=== PATIENT | male | born 1940 | race Caucasian/White ===

== ENCOUNTER 2017-01-09 05:41 | Inpatient (IN) | payer MEDICARE ==
[~2017-01-09] VITALS: Ht 185.4 cm; Wt 90.3 kg
[2017-01-09] VITALS (7 sets, daily range): BP systolic 145–186; BP diastolic 43–78
--- NOTE | ~2017-01-09 | CON ---
[place], [place] REPORT OF CONSULTATION NAME: [id number] UNIT #: [id number] ROOM: 519 DOCTOR: KETAN RODRIGUEZ MD BIRTHDATE: [birth year] DOS: 01/12/2017 PULMONARY CONSULTATION EVALUATION AND MANAGEMENT CONSULTATION REQUESTED BY: Hospitalist Services. REASON FOR CONSULTATION: To assess the patient for acute pneumonia and other ongoing acute respiratory complaints. HISTORY OF PRESENT ILLNESS: This is a 76-year-old white male who has been unknown to me from the past. The patient has been admitted under hospitalist services on 01/09/2017 and reported with symptoms of having increased shortness of breath. The patient's symptoms have been noted for several weeks until he has been assessed in the hospital. The patient's symptoms worsened significantly in 72 hours prior to admission to the hospital. He was also noted with symptoms of coughing, with intermittent sputum expectoration as well with current symptoms. The patient was also noted with symptoms of wheezing associated with current symptoms. He denies any symptoms of chest pain or chest trauma. The patient does not have any symptoms of hemoptysis. REVIEW OF SYSTEMS: CONSTITUTIONAL: He was noted with symptoms of fatigue and tiredness. Denies symptoms of fever or chills at this time, but it was reported on admission, currently seemed to be resolved. EYES: Denies any burning, diplopia for this patient or dryness of the eye or any discharge. EAR, NOSE, THROAT: No sore throat, hoarseness, otalgia, postnasal drainage or epistaxis. CARDIOVASCULAR: Denies anginal pain, edema or pain of the lower extremities. GASTROINTESTINAL: Denies dysphagia, nausea, vomiting, diarrhea, abdominal pain, hematemesis, melena at the present time. SKIN: Denies any lesions or rashes. GENITOURINARY: History of endstage renal failure for 5 years, receiving hemodialysis 3 times a week. MUSCULOSKELETAL: Denies acute joint pain, redness, or tenderness. SKIN: No lesions or rashes. CENTRAL NERVOUS SYSTEM: Denies dizziness, headache, diplopia or syncopal episodes. Remaining systems were reviewed with the patient, they were noted all negative. PAST MEDICAL HISTORY: The patient was reported as history of: 1. Congestive heart failure for this patient. Systolic, diastolic dysfunction, unknown at the present time. 2. Endstage renal failure, on hemodialysis. 3. History of hyperlipidemia. 4. Essential hypertension. 5. Type 2 diabetes mellitus. PAST SURGICAL HISTORY: Creation of the AV fistula for the patient of the right [place], [place] REPORT OF CONSULTATION NAME: ERICA ROMERO UNIT #: [id number] ROOM: [facility] DOCTOR: KETAN RODRIGUEZ MD BIRTHDATE: [birth year] upper extremity. SOCIAL HISTORY: The patient stated that he is , has 1 child. He has worked in the [employer] for 12 years or greater. Denies any history of alcohol use, tobacco use or any illicit drugs. FAMILY HISTORY: Both parents have been . Father at the age 7070 years old, complication of renal failure and also noted history of colon cancer. Mother at the age of 8080 years old, complication related to the lymphoma. DRUG ALLERGIES: Noted for no known drug allergies. HOME MEDICATIONS: Listed as use of Norvasc, Lumigan eye drops, Alphagan eye drops, folic acid with vitamin B and C combination, Lasix, NPH insulin, losartan and pravastatin. PHYSICAL EXAMINATION: GENERAL: A 76-year-old male who has been currently noted to be awake and alert without any distress. Height of 6 feet 1 inch, weight of 204 pounds, BMI 26. VITAL SIGNS: On admission recorded vital signs, the patient was noted as normal temperature, patient's highest temperature noted on 01/09/2017 as 99.9 degrees Fahrenheit, respiratory rate 12-14, and highest was recorded as 26 previously. The heart rate ranging between 79-86, blood pressure 137/59-143/62. The pulse oxygen saturation noted for this patient on admission as 90% on room air. Later on up to 4 liters saturation 95%, currently on 1 liter nasal cannula was 99% saturation recorded. HEENT: Examination shows head was atraumatic. Eyes nonicterus. NECK: Supple. CARDIOVASCULAR: S1, S2 is audible. LUNGS: The patient was noted with scattered crackles of the lungs with expiratory wheezing was noted, mild to moderate in the lungs bilaterally. ABDOMEN: Soft, nontender, bowel sounds present. EXTREMITIES: Show no edema, clubbing, cyanosis. CENTRAL NERVOUS SYSTEM: Cranial nerves 2-12 intact. No focal deficits. MUSCULOSKELETAL: No deformities. SKIN: No lesions or rashes. LABORATORY DATA: CMP of the patient on 01/09/2017, BUN is 70, creatinine 10.0, glucose 187, sodium 132, potassium was normal. PT/INR was noted as 1.1. CBC of the patient of 01/09/2017, WBC count 12.5, hemoglobin 9.2, hematocrit 26.9, platelet count 227,000. The CPK-MB for the patient that was done on 01/09/2017, troponin 0.229, MB 4.5, minimally elevated, normal CPK. Second CK-MB and troponin on the same day of the patient noted essentially the same finding as previously. PT/PTT for the patient on 01/10/2017 shows INR of 1.2. The PTT for this patient was noted at that time 34.7. CBC of patient this morning: WBC count 9.5, hemoglobin 9.1, hematocrit 27.1, platelet count of 240,000. BMP: BUN 50, creatinine 6.75, glucose of 74, chloride of 97. Review of the radiology data for this patient that has been done since admission and currently. The chest x-ray for the patient that was done on 01/09/2017, one view noted with large area of consolidation, infiltration involving right middle and right lower [place], [place] REPORT OF CONSULTATION NAME: ERICA ROMERO UNIT #: [id number] ROOM: [facility] DOCTOR: YAZMIN CHANEY MD,[facility] BIRTHDATE: [birth year] lobe. The chest x-ray which was done this morning one view again taken showed reduction and improvement in infiltration, although resolution noted incomplete. Small acute infiltration was noted in the left lower lobe. IMPRESSION: 1. The patient who has been currently noted with finding consistent with what appeared to be acute asthmatic bronchitis for this patient, which developed secondary to acute bacterial pneumonia, gram-positive organisms. Possibility of gram-negative infection cannot be completely excluded. 2. The patient with ongoing exacerbation of bronchial asthma, persistent symptoms, the patient coughing with some sputum expectoration intermittently continued. 3. Slow resolution of acute infiltration. 4. Additional area of infiltration of the patient in the left lower lobe might be suggestive of area of atelectasis secondary to mucus impaction. 5. The patient with history of end-stage renal failure, on hemodialysis on a regular basis. PLAN OF TREATMENT: The patient has been ordered the Solu-Medrol to be started 40 mg q.8 hours with gradual reduction of dose based on improvement in symptoms of wheezing. The patient is already getting bronchodilators, the DuoNeb, which will be continued for this patient as well. Monitor blood glucose of the patient if necessary because of corticosteroid use. Order the sputum for Gram stain and culture and the flutter valve. Chest x-ray, PA and lateral view of the patient will be ordered and to be done on Monday morning for this patient to reassess the progression of the current symptom response to the current treatment. If necessary, consider bronchoscopy as well. Usual care. All other supportive plan of management and therapies. Other treatment changes will be made accordingly. Thanks for allowing me to participate in the care of this patient. KETAN ARCE MD CM:CONSTR:REPORT OF CONSULTATION 1612 01/13/17 0610 interface
--- NOTE | ~2017-01-09 | CON ---
[place], [place] REPORT OF CONSULTATION [facility] [id number] UNIT #: [id number] ROOM: [facility] DOCTOR: ANA LUISA BURGOS MD BIRTHDATE: [birth year] DOS: 01/09/2017 CARDIOLOGY CONSULTATION The patient was seen. REASON FOR CONSULTATION: Elevated troponin levels. HISTORY OF PRESENT ILLNESS: The patient is a 76-year-old man who has a history of type 2 diabetes mellitus and hypertension. He denies any previous history of heart disease. Lately, he has been feeling more breathless and has had an increasing cough. He states that in the last 3 days this became much more intense and then he developed some fevers, chills, dizziness, and even diarrhea. He was brought to the Emergency Room where his chest x-ray did show multifocal consolidation and airspace disease in the right lung. He was admitted with a diagnosis of probable pneumonia. His blood test did show a mild elevation in troponin at 0.157 and on repeat 0.229. Cardiology consultation was therefore requested. The patient denies any chest pain. He denies lightheadedness or syncope. He denies orthopnea or PND. He does not think he has had chills, but has been slightly feverish. PAST MEDICAL HISTORY: Includes the followin. End-stage renal disease, on dialysis. The patient states that he has been on dialysis for about 5 years and he believes that his renal failure was caused by uncontrolled hypertension. 2. Chronic diastolic congestive heart failure. 3. Hyperlipidemia. 4. Long history of uncontrolled hypertension. 5. Type 2 diabetes mellitus. FAMILY HISTORY: His mother in her 80s from a lymphoma. His father of kidney failure in his 70s. MEDICATIONS: Prior to admission, amlodipine 5 mg daily, Lumigan eyedrops as prescribed, Alphagan eyedrops daily, calcium acetate 667 mg t.i.d., folic acid with B complex and C daily, furosemide 40 mg p.o. daily, Novolin 70/30 insulin 25 units subcutaneously b.i.d., losartan 50 mg daily and pravastatin 40 mg daily. ALLERGIES: He has no known drug allergies. REVIEW OF SYSTEMS: The patient denies diplopia or change in vision. He denies focal weakness. He denies syncope or lightheadedness. He denies nausea or vomiting now, although he did have some diarrhea prior to admission. He denies fevers or chills. He has had a minimally productive cough. He has been noticing worsening dyspnea and orthopnea. He denies hemoptysis or hematemesis. He denies blood in his stools or urine. The remainder of the review of systems is negative except as noted above. SOCIAL HISTORY: The patient does not smoke or consume alcohol. [place], [place] REPORT OF CONSULTATION NAME: ERICA ROMERO UNIT #: [id number] ROOM: [facility] DOCTOR: ANA LUISA BURGOS MD BIRTHDATE: [birth year] PHYSICAL EXAMINATION: GENERAL: The patient is an elderly white male who is awake, alert and oriented. VITAL SIGNS: Pulse is 90 and regular, blood pressure is 145/43. He is afebrile. He weighs 92.5 kilograms with a body mass index of 26.9. HEENT: Normocephalic, atraumatic. Extraocular muscles are intact. Sclerae are clear. Pupils are round and reactive to light. He was seen while on dialysis. NECK: Supple. He had no jugular distention or hepatojugular reflux. Carotids were full. I heard no bruits. LUNGS: Respirations were unlabored. He had decreased breath sounds at the right base and crackles in the right mid lung. The left lung was clear. CARDIOVASCULAR: His heart had a regular rhythm. He had a fourth heart sound, but no third heart sound or significant murmur. The PMI was not displaced. There is no precordial heave, lift or thrill. ABDOMEN: Soft and normally active without masses, organomegaly or bruits. EXTREMITIES: Showed 1+ edema of the ankles bilaterally. Peripheral pulses were absent in the feet. LABORATORY DATA: I reviewed the electrocardiogram. It showed sinus rhythm and no acute ST or T-wave changes were present. IMPRESSION: 1. Mildly elevated troponin. The etiology of this is not clear. The patient does have end-stage renal disease and this may contribute to an elevation in troponin. His pneumonia may also contribute to a type 2 myocardial infarction because of a demand supply mismatch. The patient did not show signs that this is an acute coronary event. 2. Pneumonia. 3. End-stage renal disease. PLAN: I will probably start him on a low dose of beta leif to help control his heart rate and blood pressure. We will check an echocardiogram for left ventricular wall motion and function. Once his pneumonia clears if he shows any signs of coronary ischemia, then a stress test could be performed in order to help determine his risk for future cardiovascular events. I thank the hospitalist physicians for asking our advice regarding his care. ANA LUISA BURGOS MD CM:CONSTR:REPORT OF CONSULTATION 1632 01/10/17 0512 interface
--- NOTE | ~2017-01-09 | PR ---
[place], [place] PROGRESS NOTE NAME: ERICA ROMERO UNIT #: [id number] ROOM: 519 DOCTOR: ANA LUISA BURGOS MD BIRTHDATE: [birth year] DOS: 01/12/2017 CARDIOLOGY PROGRESS NOTE SUBJECTIVE: The patient was seen at his bedside in the dialysis unit today, 01/12/2017 for followup of an elevated troponin level in the setting of pneumonia, type 2 diabetes mellitus, hypertension, end-stage renal disease. The patient remains on therapy for a right lung pneumonia and continues to have scattered wheezing. Nonetheless, he feels well and is in good spirits. He denies any chest pain. He remains on dialysis, which he is tolerating well. He denies any chest pain. PHYSICAL EXAMINATION: VITAL SIGNS: Today his pulse is 86 and regular, blood pressure is 143/62. He is afebrile. He weighs 88.2 kg and has a body mass index of 25.6. HEENT: Normocephalic, atraumatic. Extraocular muscles are intact. Sclerae are clear. Pupils are round and reactive to light. Oral mucosa is moist. Tongue is midline. NECK: Supple. He had no jugular distention. Carotids are full. LUNGS: Respirations were unlabored, but he did have scattered wheezes overall lung velarde. HEART: Had a regular rhythm with an S4 gallop. ABDOMEN: Soft. EXTREMITIES: Showed no edema. IMPRESSION: 1. Mildly elevated troponin. This most likely is due to demand ischemia, but given his risk factors, he may have underlying coronary artery disease. 2. Right lung pneumonia, possibly due to aspiration. 3. End-stage renal disease, on dialysis. 4. Hypertension. 5. Hyperlipidemia. 6. Chronic diastolic heart failure. 7. Echocardiogram on 01/10/2017 showed normal left ventricular size, wall motion and systolic function with mild concentric left ventricular hypertrophy, ejection fraction 55-60%, grade 2 diastolic dysfunction. PLAN: He will continue on his dialysis and antibiotics. We will plan a risk stratifying stress test when his other medical problems have been stabilized. We thank the hospitalist physicians for asking our advice regarding his care. [place], [place] PROGRESS NOTE NAME: ERICA ROMERO UNIT #: [id number] ROOM: 519 DOCTOR: ANA LUISA BURGOS MD BIRTHDATE: [birth year] ANA LUISA BURGOS MD CM:PNTRANS 5 ANA LUISA BURGOS MD 01/13/17115 interface
--- NOTE | ~2017-01-09 | EKG ---
[place], [place] ELECTROCARDIOGRAM REPORT NAME: ERICA ROMERO UNIT #: [id number] ROOM: [facility] DOCTOR: ANA LUISA BURGOS MD BIRTHDATE: [birth year] DOS: 01/09/2017 TIME: 0621 hours. Normal sinus rhythm at a rate of 94, leftward axis, otherwise normal tracing. ANA LUISA BURGOS MD CM:EKGRPT:ELECTROCARDIOGRAM REPORT [id number] ANA LUISA BURGOS MD
--- NOTE | ~2017-01-09 | PR ---
[place], [place] PROGRESS NOTE NAME: ERICA ROMERO UNIT #: [id number] ROOM: 519 DOCTOR: KETAN RODRIGUEZ MD BIRTHDATE: [birth year] DOS: 01/13/2017 PULMONARY FOLLOWUP NOTE SUBJECTIVE: He has been noted comfortable at this time, resting on his bed. Denies symptoms of chest pain. The coughing has been improving. Wheezing was also noted with gradual reduction. Denies symptoms of chest pain or any abdominal pain. The patient stated that he has been feeling much better at the present time. OBJECTIVE: VITAL SIGNS: For the patient which has been recorded showed the temperature of the patient noted as normal. The respiratory rate of the patient recorded as 18-12. The heart rate for this patient was recorded as 89 this morning, blood pressure 136/56-167/61, temperature was normal. Pulse oxygen saturation of the patient recorded on room air 96% saturation. HEENT: Examination shows head was atraumatic. Eyes nonicterus. NECK: Supple. CARDIOVASCULAR: S1, S2 is audible. LUNGS: The patient was noted without any wheezing or crackles at the present time. ABDOMEN: Noted soft, nontender. LABORATORY DATA: The patient's CBC today, hemoglobin 9.2, hematocrit 27.2, platelet count was normal. BMP of the patient this morning, BUN 32, creatinine 4.78. IMPRESSION: 1. The patient with resolving acute exacerbation of bronchial asthma as well as improving pneumonia progressively. 2. The patient with end-stage renal failure, on regular hemodialysis as well. PLAN OF TREATMENT: No changes for this patient except reduction of the corticosteroids. If the patient needs to be discharged, he could be discharged home on tapering dose of prednisone and the antibiotics. Other supportive plan and management to be continued. Outpatient followup for the patient could be done if the patient would like to assess further for the pulmonary disease. [place], [place] PROGRESS NOTE NAME: ERICA ROMERO UNIT #: [id number] ROOM: 519 DOCTOR: KETAN RODRIGUEZ MD BIRTHDATE: [birth year] KETAN ARCE MD CM:PNTRANS [id number] KETAN CHANEY MD 01/14/17 0333 interface
--- NOTE | ~2017-01-09 | EKG ---
[place], [place] ELECTROCARDIOGRAM REPORT NAME: ERICA ROMERO UNIT #: [id number] ROOM: [facility] DOCTOR: ANA LUISA BURGOS MD BIRTHDATE: [birth year] DOS: 01/10/2017 TIME: 07:35 Sinus rhythm at rate of 95 with occasional PVCs and occasional PACs. Left atrial enlargement. Nonspecific T-wave flattening. Abnormal electrocardiogram. ANA LUISA BURGOS MD CM:EKGRPT:ELECTROCARDIOGRAM REPORT [id number] 0233 ANA LUISA BURGOS MD
[2017-01-09] MEDS ORDERED: NOVOLIN 70100 UNIT/1 SQ (06:05)
[2017-01-09] MEDS ORDERED: NORVASC5 MG PO (06:06)
[2017-01-09] MEDS ORDERED: CALPHRON667 MG PO (06:07)
[2017-01-09] MEDS ORDERED: LASIX40 MG PO (06:08)
[2017-01-09] MEDS ORDERED: PRAVACHOL40 MG PO (06:08)
[2017-01-09] MEDS ORDERED: LOSARTAN POTASS50 M1 PO (06:09)
[2017-01-09] MEDS ORDERED: RENAL VITAMIN0.8 MG PO (06:10)
[2017-01-09 06:23] LABS: BASO % 0.2 % (0.0-1.0); HEMATOCRIT 26.9 % (42.0-52.0); HEMOGLOBIN 9.2 g/dl (14.0-18.0); LYMPH # 0.7 10*3/uL (1.3-4.4); LYMPH % 5.7 % (27.0-41.0); MEAN CELL VOLUME 98.9 fl (80.0-94.0); MEAN CORPUSCULAR HGB 33.8 pg (27.0-31.0); MEAN CORPUSCULAR HGB CONC 34.2 g/dl (33.0-37.0); MONO # 0.6 10*3/uL (0.1-1.0); MONO % 4.8 % (3.0-9.0); NEUT # 11.1 10*3/uL (2.3-7.9); PLATELET COUNT AUTOMATED 227 10*3/uL (130-400); RED BLOOD COUNT 2.72 10*6/uL (4.50-5.90); RED CELL DISTRI WIDTH 15.9 % (0-14.5); WHITE BLOOD COUNT 12.5 10*3/uL (4.8-10.8)
[2017-01-09 06:30] LABS: INTERNATIONAL NORM RATIO 1.1 (2.0-3.5); PROTHROMBIN TIME 11.5 SECONDS (9.0-12.4)
[2017-01-09 06:39] LABS: BILIRUBIN, TOTAL 0.8 mg/dl (0.2-1.0); MAGNESIUM 1.7 mg/dL (1.5-2.1)
[2017-01-09 06:41] LABS: TROPONIN I 0.157 ng/ml (<0.045)
[2017-01-09] MEDS ORDERED: LUMIGAN50 DRP OPH (08:52)
[2017-01-09] MEDS ORDERED: ALPHAGAN P 10 M10 M1 OPH (08:52)
[2017-01-09] MEDS ORDERED: RENAL-VITE TAB0.8 MG PO (09:47)
[2017-01-09 12:24] LABS: CKMB 4.5 ng/ml (0.5-3.6)
[2017-01-09 12:30] LABS: TROPONIN I 0.229 ng/ml (<0.045)
[2017-01-09 18:25] LABS: CKMB 4.4 ng/ml (0.5-3.6)
[2017-01-09 18:30] LABS: TROPONIN I 0.249 ng/ml (<0.045)
[2017-01-10] VITALS: BP 158/68
[2017-01-10 00:45] LABS: CKMB 4.5 ng/ml (0.5-3.6)
[2017-01-10 00:48] LABS: TROPONIN I 0.617 ng/ml (<0.045)
[2017-01-10 04:00] VITALS: BP 158/59
[2017-01-10 05:58] LABS: ALBUMIN 2.6 gm/dl (3.1-4.5); BILIRUBIN, TOTAL 0.7 mg/dl (0.2-1.0); FREE T4 0.99 ng/dl (0.76-1.46); MAGNESIUM 1.6 mg/dL (1.5-2.1); PHOSPHOROUS 4.9 mg/dL (2.5-4.9); POTASSIUM 4.2 mmol/L (3.5-5.1); TOTAL PROTEIN 6.6 gm/dL (6.4-8.2)
[2017-01-10 06:01] LABS: TROPONIN I 0.674 ng/ml (<0.045)
[2017-01-10 06:04] LABS: BASO % 0.2 % (0.0-1.0); EOS % 0.1 % (1.0-4.0); HEMATOCRIT 24.9 % (42.0-52.0); HEMOGLOBIN 8.3 g/dl (14.0-18.0); IG # 0.1 10*3/uL (0.0-0.1); LYMPH # 1.3 10*3/uL (1.3-4.4); MEAN CELL VOLUME 99.6 fl (80.0-94.0); MEAN CORPUSCULAR HGB 33.2 pg (27.0-31.0); MEAN CORPUSCULAR HGB CONC 33.3 g/dl (33.0-37.0); MONO # 0.6 10*3/uL (0.1-1.0); MONO % 5.3 % (3.0-9.0); NEUT % 81.8 % (47.0-73.0); PLATELET COUNT AUTOMATED 208 10*3/uL (130-400); RED CELL DISTRI WIDTH 16.2 % (0-14.5); THYROID STIM HORMONE (HS) 1.99 uIU/ml (0.358-4.75)
[2017-01-10 06:13] LABS: HEMOGLOBIN A1c 5.2 % (4.8-5.6)
[2017-01-10 06:14] LABS: INTERNATIONAL NORM RATIO 1.2 (2.0-3.5); PROTHROMBIN TIME 12.5 SECONDS (9.0-12.4)
[2017-01-10 06:17] LABS: VITAMIN D, 25-HYDROXY 14.6 ng/mL (30-100)
[2017-01-10 06:25] LABS: FOLIC ACID > 24.00 ng/mL (>5.38)
[2017-01-10 08:00] VITALS: BP 154/56
[2017-01-10 12:00] VITALS: BP 176/69
[2017-01-10 16:00] VITALS: BP 179/73
[2017-01-10 20:00] VITALS: BP 157/65
[2017-01-11] VITALS: BP 159/67
[2017-01-11 04:00] VITALS: BP 153/68
[2017-01-11 06:10] LABS: BASO % 0.1 % (0.0-1.0); EOS # 0.1 10*3/uL (0.0-0.4); EOS % 0.8 % (1.0-4.0); HEMATOCRIT 24.6 % (42.0-52.0); HEMOGLOBIN 8.2 g/dl (14.0-18.0); IG # 0.2 10*3/uL (0.0-0.1); LYMPH # 1.6 10*3/uL (1.3-4.4); LYMPH % 18.6 % (27.0-41.0); MEAN CORPUSCULAR HGB 33.3 pg (27.0-31.0); MEAN CORPUSCULAR HGB CONC 33.3 g/dl (33.0-37.0); MEAN PLATELET VOLUME 9.9 fl (9.6-12.3); MONO # 0.6 10*3/uL (0.1-1.0); MONO % 7.3 % (3.0-9.0); NEUT # 6.1 10*3/uL (2.3-7.9); NEUT % 71.1 % (47.0-73.0); PLATELET COUNT AUTOMATED 212 10*3/uL (130-400); RED BLOOD COUNT 2.46 10*6/uL (4.50-5.90); RED CELL DISTRI WIDTH 15.9 % (0-14.5); WHITE BLOOD COUNT 8.6 10*3/uL (4.8-10.8)
[2017-01-11 06:25] LABS: POTASSIUM 4.2 mmol/L (3.5-5.1)
[2017-01-11 08:00] VITALS: BP 164/61
[2017-01-11 12:00] VITALS: BP 164/61
[2017-01-11 16:00] VITALS: BP 132/50
[2017-01-11 20:00] VITALS: BP 140/58
[2017-01-12] VITALS: BP 143/62
[2017-01-12 06:25] LABS: BASO % 0.3 % (0.0-1.0); EOS # 0.2 10*3/uL (0.0-0.4); HEMATOCRIT 27.1 % (42.0-52.0); HEMOGLOBIN 9.1 g/dl (14.0-18.0); IG # 0.3 10*3/uL (0.0-0.1); LYMPH # 2.5 10*3/uL (1.3-4.4); LYMPH % 25.9 % (27.0-41.0); MEAN CELL VOLUME 100.4 fl (80.0-94.0); MEAN CORPUSCULAR HGB 33.7 pg (27.0-31.0); MEAN CORPUSCULAR HGB CONC 33.6 g/dl (33.0-37.0); MEAN PLATELET VOLUME 9.5 fl (9.6-12.3); MONO # 0.5 10*3/uL (0.1-1.0); MONO % 5.6 % (3.0-9.0); NEUT % 63.3 % (47.0-73.0); PLATELET COUNT AUTOMATED 240 10*3/uL (130-400); RED CELL DISTRI WIDTH 15.9 % (0-14.5); WHITE BLOOD COUNT 9.5 10*3/uL (4.8-10.8)
[2017-01-12 06:30] LABS: POTASSIUM 4.2 mmol/L (3.5-5.1)
[2017-01-12 06:32] LABS: VANCOMYCIN TROUGH 16.1 ug/mL (10-20)
[2017-01-12 08:00] VITALS: BP 137/59
[2017-01-12 12:00] VITALS: BP 108/82; BP 110/70
[2017-01-12 14:00] VITALS: BP 110/70
[2017-01-12 16:00] VITALS: BP 108/82
[2017-01-12 20:00] VITALS: BP 131/51
[2017-01-13] VITALS: BP 136/56
[2017-01-13 05:52] LABS: HEMATOCRIT 27.2 % (42.0-52.0); HEMOGLOBIN 9.2 g/dl (14.0-18.0); MEAN CELL VOLUME 99.6 fl (80.0-94.0); MEAN CORPUSCULAR HGB 33.7 pg (27.0-31.0); MEAN CORPUSCULAR HGB CONC 33.8 g/dl (33.0-37.0); PLATELET COUNT AUTOMATED 248 10*3/uL (130-400); RED BLOOD COUNT 2.73 10*6/uL (4.50-5.90); RED CELL DISTRI WIDTH 15.7 % (0-14.5); WHITE BLOOD COUNT 7.7 10*3/uL (4.8-10.8)
[2017-01-13 07:02] LABS: LYMPHOCYTE # 0.8 10*3/uL (1.3-4.4); METAMYELOCYTES 1 % (0-0); MONOCYTE # 0.2 10*3/uL (0.1-1.0); MYELOCYTES 2 % (0-0); NEUTROPHIL # 6.5 10*3/uL (2.3-7.9); NEUTROPHILS 84 % (47-73); TOTAL CELLS COUNTED 100 #CELLS
[2017-01-13 07:03] LABS: PLATELET SUFFICIENCY NORMAL (NORMAL); TOXIC GRANULATION SLIGHT
[2017-01-13 08:00] VITALS: BP 167/61
[2017-01-13 12:00] VITALS: BP 146/61
[2017-01-13] MEDS ORDERED: PREDNISONE10 MG PO (13:49)
[2017-01-13] MEDS ORDERED: METOPROLOL SUCC25 M2 PO (13:49)
[2017-01-13] MEDS ORDERED: VITAMIN D1000 IU PO (13:49)
[2017-01-13] MEDS ORDERED: VENTOLIN H0.09 MG/AC INH (16:07)
== END 2017-01-13 15:30 | disposition home or self-care (01) | DRG 871 ==
LOC: ED 05:41 → EDHOLD 08:15 → ICCU 08:15 → 5E 01-11 13:58
PROVIDERS: Emergency Medicine Emergency Medical Services; Internal Medicine
PROC: 5A1D60Z (ICD-10-PCS; principal; 2017-01-09)
DX: A41.9 Sepsis, unspecified organism (principal); J69.0 Pneumonitis due to inhalation of food and vomit; J96.01 Acute respiratory failure with hypoxia; E43 Unspecified severe protein-calorie malnutrition; I13.2 Hypertensive heart and chronic kidney disease with heart failure and with stage 5 chronic kidney disease, or end stage renal disease; E87.1 Hypo-osmolality and hyponatremia; J45.901 Unspecified asthma with (acute) exacerbation; N18.6 End stage renal disease; I50.32 Chronic diastolic (congestive) heart failure; D53.9 Nutritional anemia, unspecified; E11.65 Type 2 diabetes mellitus with hyperglycemia; E11.22 Type 2 diabetes mellitus with diabetic chronic kidney disease; E78.5 Hyperlipidemia, unspecified; E55.9 Vitamin D deficiency, unspecified; Z79.4 Long term (current) use of insulin; Z79.84 Long term (current) use of oral hypoglycemic drugs; Z79.899 Other long term (current) drug therapy

== ENCOUNTER → 2017-01-18 | Outpatient (CLI) | payer MEDICARE ==
[~2017-01-18] MED LIST: ALPHAGAN P 10 M10 M1 OPH; CALPHRON667 MG PO; LASIX40 MG PO; LOSARTAN POTASS50 M1 PO; LUMIGAN50 DRP OPH; METOPROLOL SUCC25 M2 PO; NORVASC5 MG PO; NOVOLIN 70100 UNIT/1 SQ; PRAVACHOL40 MG PO; PREDNISONE10 MG PO; RENAL VITAMIN0.8 MG PO; RENAL-VITE TAB0.8 MG PO; VENTOLIN H0.09 MG/AC INH; VITAMIN D1000 IU PO
--- NOTE | ~2017-01-18 | ST ---
[place], [place] EXERCISE STRESS TEST REPORT NAME: [id number] UNIT #: [id number] ROOM: DOCTOR: STARLA CHING,OREN BIRTHDATE: [birth year] DOS: 01/18/2017 REASON FOR TEST: The patient with NSTEMI. PHYSICAL EXAMINATION NECK: Supple. LUNGS: Clear anteriorly. HEART: Regular rhythm. PROTOCOL: Lexiscan protocol. Maximum heart rate 90, peak blood pressure 154/74. SYMPTOMS: The patient is chest pain free. EKG: Resting EKG shows sinus rhythm. Stress EKG showed sinus rhythm with occasional PACs. POST-STRESS COMPLICATIONS: None. The patient received a total of 0.4 mg of Lexiscan. OREN CHA MD CM:STRESS:EXERCISE STRESS TEST REPORT [id number] 0329 OREN CHA MD
== END | disposition home or self-care (01) ==
LOC: CARD 01:21
DX: I21.4 Non-ST elevation (NSTEMI) myocardial infarction (principal); I25.10 Atherosclerotic heart disease of native coronary artery without angina pectoris

== ENCOUNTER 2017-12-13 10:56 | Inpatient (IN) | payer MEDICARE ==
[~2017-12-13] VITALS: Ht 182.8 cm; Wt 85.4 kg
[2017-12-13] VITALS (9 sets, daily range): BP systolic 100–188; BP diastolic 56–74
[2017-12-13 11:22] LABS: BASO # 0.1 10*3/uL (0.0-0.1); BASO % 0.6 % (0.0-1.0); EOS # 0.2 10*3/uL (0.0-0.4); EOS % 1.9 % (1.0-4.0); HEMATOCRIT 34.1 % (42.0-52.0); LYMPH # 1.6 10*3/uL (1.3-4.4); LYMPH % 19.6 % (27.0-41.0); MEAN CELL VOLUME 103.6 fl (80.0-94.0); MEAN CORPUSCULAR HGB 33.4 pg (27.0-31.0); MEAN CORPUSCULAR HGB CONC 32.3 g/dl (33.0-37.0); MEAN PLATELET VOLUME 10.3 fl (9.6-12.3); MONO # 0.7 10*3/uL (0.1-1.0); MONO % 8.7 % (3.0-9.0); NEUT # 5.7 10*3/uL (2.3-7.9); NEUT % 68.8 % (47.0-73.0); PLATELET COUNT AUTOMATED 220 10*3/uL (130-400); RED BLOOD COUNT 3.29 10*6/uL (4.50-5.90); RED CELL DISTRI WIDTH 15.1 % (0-14.5); WHITE BLOOD COUNT 8.3 10*3/uL (4.8-10.8)
[2017-12-13 11:40] LABS: ALBUMIN 3.8 gm/dl (3.1-4.5); ALKALINE PHOSPHATASE 69 U/L (45-117); BUN 42 mg/dl (7-24); CHLORIDE 101 mmol/L (98-107); CREATININE 8.01 mg/dL (0.70-1.30); LIPASE 157 U/L (73-393); POTASSIUM 3.7 mmol/L (3.5-5.1); SGOT/AST 23 IU/L (3-35); SGPT/ALT 17 U/L (12-78); SODIUM 140 mmol/L (136-145); TOTAL PROTEIN 7.2 gm/dL (6.4-8.2); TROPONIN I 0.045 ng/ml (<0.045)
[2017-12-13 11:48] LABS: ACT PARTIAL THROMBO TIME 29.9 SECONDS (20.8-31.5)
[2017-12-13] MEDS ORDERED: CALCIUM ACETAT667 M2 PO ×2 (14:47→14:49)
[2017-12-13] MEDS ORDERED: FUROSEMIDE40 MG PO (14:50)
[2017-12-13] MEDS ORDERED: REFRESH TEARS15 ML OU (14:56)
[2017-12-13] MEDS ORDERED: PRESERVISION A1 EACH PO (14:58)
[2017-12-13] MEDS ORDERED: PRAVASTATIN SOD80 MG PO (14:59)
[2017-12-14] VITALS: BP 164/82
[2017-12-14 06:30] LABS: BASO % 0.4 % (0.0-1.0); EOS # 0.1 10*3/uL (0.0-0.4); EOS % 1.2 % (1.0-4.0); HEMATOCRIT 31.9 % (42.0-52.0); HEMOGLOBIN 10.6 g/dl (14.0-18.0); LYMPH # 1.5 10*3/uL (1.3-4.4); LYMPH % 19.8 % (27.0-41.0); MEAN CELL VOLUME 102.9 fl (80.0-94.0); MEAN CORPUSCULAR HGB 34.2 pg (27.0-31.0); MEAN CORPUSCULAR HGB CONC 33.2 g/dl (33.0-37.0); MEAN PLATELET VOLUME 10.3 fl (9.6-12.3); MONO # 0.6 10*3/uL (0.1-1.0); MONO % 7.9 % (3.0-9.0); NEUT # 5.4 10*3/uL (2.3-7.9); NEUT % 70.4 % (47.0-73.0); PLATELET COUNT AUTOMATED 167 10*3/uL (130-400); RED CELL DISTRI WIDTH 14.9 % (0-14.5); WHITE BLOOD COUNT 7.6 10*3/uL (4.8-10.8)
[2017-12-14 06:49] LABS: ALBUMIN 3.6 gm/dl (3.1-4.5); CREATININE 9.27 mg/dL (0.70-1.30); PHOSPHOROUS 3.7 mg/dL (2.5-4.9); POTASSIUM 4.6 mmol/L (3.5-5.1); TOTAL PROTEIN 6.8 gm/dL (6.4-8.2)
[2017-12-14 08:00] VITALS: BP 159/77
[2017-12-14 12:00] VITALS: BP 164/78
[2017-12-14 16:00] VITALS: BP 117/53
[2017-12-14 20:00] VITALS: BP 149/63
[2017-12-15] VITALS: BP 142/60
[2017-12-15 07:01] LABS: ALBUMIN 3.5 gm/dl (3.1-4.5); CREATININE 6.36 mg/dL (0.70-1.30); PHOSPHOROUS 3.6 mg/dL (2.5-4.9); POTASSIUM 4.6 mmol/L (3.5-5.1)
[2017-12-15 08:00] VITALS: BP 157/49
== END 2017-12-15 12:00 | disposition home or self-care (01) | DRG 637 ==
LOC: ED 10:56 → 5E 13:24 → EDHOLD 13:24 → 5E 13:37
PROVIDERS: Emergency Medicine; Family Medicine; Student in an Organized Health Care Education/Training Program
DX: E11.649 Type 2 diabetes mellitus with hypoglycemia without coma (principal); G93.41 Metabolic encephalopathy; N17.0 Acute kidney failure with tubular necrosis; I13.2 Hypertensive heart and chronic kidney disease with heart failure and with stage 5 chronic kidney disease, or end stage renal disease; E87.2 Acidosis; I95.9 Hypotension, unspecified; N18.6 End stage renal disease; D53.9 Nutritional anemia, unspecified; E11.22 Type 2 diabetes mellitus with diabetic chronic kidney disease; I50.33 Acute on chronic diastolic (congestive) heart failure; D72.810 Lymphocytopenia; M89.9 Disorder of bone, unspecified; R79.89 Other specified abnormal findings of blood chemistry; E78.5 Hyperlipidemia, unspecified; E55.9 Vitamin D deficiency, unspecified; Z99.2 Dependence on renal dialysis; Z79.4 Long term (current) use of insulin; Z84.1 Family history of disorders of kidney and ureter; Z80.7 Family history of other malignant neoplasms of lymphoid, hematopoietic and related tissues; Z79.899 Other long term (current) drug therapy; W19.XXXA Unspecified fall, initial encounter

== ENCOUNTER → 2017-12-27 | Outpatient (CLI) | payer OTHER ==
[~2017-12-27] MED LIST changes: +CALCIUM ACETAT667 M2 PO; +FUROSEMIDE40 MG PO; +PRAVASTATIN SOD80 MG PO; +PRESERVISION A1 EACH PO; +REFRESH TEARS15 ML OU
== END | disposition home or self-care (01) ==
LOC: US 14:33
DX: I65.23 Occlusion and stenosis of bilateral carotid arteries (principal)

== ENCOUNTER 2018-09-11 08:27 | Inpatient (IN) | payer MEDICARE, OTHER ==
[~2018-09-11] VITALS: Ht 187.9 cm; Wt 90.9 kg
--- NOTE | ~2018-09-11 | EKG ---
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
[2018-09-11 08:27] VITALS: BP 131/65
[~2018-09-11 08:27] MED LIST changes: +ASPIRIN ADULT L81 M2 PO; +DOXYCYCLINE100 M3 PO; +LOPRESSOR25 MG PO; +Synthroid,Levo25 MCG PO
[2018-09-11 08:54] LABS: BASO % 0.3 % (0.0-1.0); EOS # 0.2 10*3/uL (0.0-0.4); EOS % 2.5 % (1.0-4.0); HEMATOCRIT 29.1 % (42.0-52.0); HEMOGLOBIN 9.8 g/dl (14.0-18.0); LYMPH # 1.1 10*3/uL (1.3-4.4); LYMPH % 13.1 % (27.0-41.0); MEAN CELL VOLUME 103.2 fl (80.0-94.0); MEAN CORPUSCULAR HGB 34.8 pg (27.0-31.0); MEAN CORPUSCULAR HGB CONC 33.7 g/dl (33.0-37.0); MEAN PLATELET VOLUME 10.2 fl (9.6-12.3); MONO # 0.5 10*3/uL (0.1-1.0); MONO % 5.3 % (3.0-9.0); NEUT # 6.8 10*3/uL (2.3-7.9); NEUT % 78.3 % (47.0-73.0); PLATELET COUNT AUTOMATED 138 10*3/uL (130-400); RED BLOOD COUNT 2.82 10*6/uL (4.50-5.90); RED CELL DISTRI WIDTH 15.6 % (0-14.5); WHITE BLOOD COUNT 8.7 10*3/uL (4.8-10.8)
[2018-09-11 09:02] LABS: ACT PARTIAL THROMBO TIME 25.4 SECONDS (20.8-31.5)
[2018-09-11 09:13] LABS: ALBUMIN 3.5 gm/dl (3.1-4.5); CREATININE 8.45 mg/dL (0.70-1.30); POTASSIUM 3.8 mmol/L (3.5-5.1); TOTAL PROTEIN 7.1 gm/dL (6.4-8.2)
[2018-09-11 09:23] LABS: TROPONIN I 0.07 ng/ml (<0.045)
[2018-09-11 09:30] VITALS: BP 172/72
[2018-09-11 10:06] VITALS: BP 171/74
[2018-09-11 10:15] VITALS: BP 182/80
[2018-09-11] MEDS ORDERED: HUMULIN 70/30 710 M1 SC (13:36)
[2018-09-11] MEDS ORDERED: RENAL CAPS SOFTG1 MG PO (13:37)
[2018-09-11 16:00] VITALS: BP 150/58; BP 151/53
[2018-09-12] VITALS: BP 129/58
[2018-09-12 07:06] LABS: BASO % 0.4 % (0.0-1.0); EOS # 0.2 10*3/uL (0.0-0.4); EOS % 1.9 % (1.0-4.0); HEMATOCRIT 28.7 % (42.0-52.0); HEMOGLOBIN 9.6 g/dl (14.0-18.0); LYMPH # 1.5 10*3/uL (1.3-4.4); LYMPH % 17.7 % (27.0-41.0); MEAN CELL VOLUME 102.9 fl (80.0-94.0); MEAN CORPUSCULAR HGB 34.4 pg (27.0-31.0); MEAN CORPUSCULAR HGB CONC 33.4 g/dl (33.0-37.0); MEAN PLATELET VOLUME 10.5 fl (9.6-12.3); MONO # 0.6 10*3/uL (0.1-1.0); NEUT # 6.1 10*3/uL (2.3-7.9); NEUT % 72.6 % (47.0-73.0); PLATELET COUNT AUTOMATED 151 10*3/uL (130-400); RED BLOOD COUNT 2.79 10*6/uL (4.50-5.90); RED CELL DISTRI WIDTH 15.4 % (0-14.5); WHITE BLOOD COUNT 8.4 10*3/uL (4.8-10.8)
[2018-09-12 07:44] LABS: POTASSIUM 3.9 mmol/L (3.5-5.1)
[2018-09-12 07:59] LABS: ALBUMIN 3.7 gm/dl (3.1-4.5); CREATININE 5.77 mg/dL (0.70-1.30); FREE T4 0.79 ng/dl (0.76-1.46); PHOSPHOROUS 4.1 mg/dL (2.5-4.9); THYROID STIM HORMONE (HS) 2.11 uIU/ml (0.358-4.75)
[2018-09-12 08:00] VITALS: BP 134/64
[2018-09-12 08:45] LABS: VITAMIN D, 25-HYDROXY 24.9 ng/mL (30-100)
[2019-03-01] MEDS ORDERED: NORCO 5-325 TA1 EACH PO (15:35)
[2019-03-01] MEDS ORDERED: LOSARTAN POTASS25 M1 PO (17:29)
[2019-03-01] MEDS ORDERED: I-VITE TABLET1 EACH PO (17:30)
[2019-03-01] MEDS ORDERED: METOPROLOL25 MG PO (17:30)
[2019-03-05] MEDS ORDERED: NAFCILLIN2 GM IJ (15:44)
== END 2018-09-12 12:11 | disposition home or self-care (01) | DRG 312 ==
LOC: ED 08:27 → EDHOLD 09:35 → 5E 09:35
PROVIDERS: Emergency Medicine; Registered Nurse; ADMIT Internal Medicine
PROC: 5A1D70Z Performance of Urinary Filtration, Intermittent, Less than 6 Hours Per Day (ICD-10-PCS; principal; 2018-09-11)
DX: R55 Syncope and collapse (principal); N18.6 End stage renal disease; E44.0 Moderate protein-calorie malnutrition; I50.32 Chronic diastolic (congestive) heart failure; I13.2 Hypertensive heart and chronic kidney disease with heart failure and with stage 5 chronic kidney disease, or end stage renal disease; I42.9 Cardiomyopathy, unspecified; E78.5 Hyperlipidemia, unspecified; E11.65 Type 2 diabetes mellitus with hyperglycemia; E11.22 Type 2 diabetes mellitus with diabetic chronic kidney disease; I70.201 Unspecified atherosclerosis of native arteries of extremities, right leg; Z79.4 Long term (current) use of insulin; E55.9 Vitamin D deficiency, unspecified; D53.9 Nutritional anemia, unspecified; R74.8 Abnormal levels of other serum enzymes; E11.40 Type 2 diabetes mellitus with diabetic neuropathy, unspecified; E11.51 Type 2 diabetes mellitus with diabetic peripheral angiopathy without gangrene; Z98.42 Cataract extraction status, left eye; Z98.41 Cataract extraction status, right eye; Z80.0 Family history of malignant neoplasm of digestive organs; Z80.51 Family history of malignant neoplasm of kidney; Z79.82 Long term (current) use of aspirin; Z79.899 Other long term (current) drug therapy

== ENCOUNTER 2018-12-06 05:29 | Emergency (ER) | payer MEDICARE, OTHER ==
[~2018-12-06] VITALS: Ht 182.8 cm; Wt 81.6 kg
--- NOTE | ~2018-12-06 | EKG ---
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
[~2018-12-06 05:29] MED LIST changes: +HUMULIN 70/30 710 M1 SC; +RENAL CAPS SOFTG1 MG PO
[2018-12-06 06:00] LABS: BASO # 0.1 10*3/uL (0.0-0.1); BASO % 0.8 % (0.0-1.0); EOS # 0.2 10*3/uL (0.0-0.4); EOS % 2.6 % (1.0-4.0); HEMATOCRIT 23.8 % (42.0-52.0); HEMOGLOBIN 7.4 g/dl (14.0-18.0); LYMPH # 1.9 10*3/uL (1.3-4.4); LYMPH % 29.5 % (27.0-41.0); MEAN CELL VOLUME 105.3 fl (80.0-94.0); MEAN CORPUSCULAR HGB 32.7 pg (27.0-31.0); MEAN CORPUSCULAR HGB CONC 31.1 g/dl (33.0-37.0); MONO # 0.6 10*3/uL (0.1-1.0); MONO % 8.9 % (3.0-9.0); NEUT # 3.7 10*3/uL (2.3-7.9); NEUT % 57.1 % (47.0-73.0); PLATELET COUNT AUTOMATED 223 10*3/uL (130-400); RED BLOOD COUNT 2.26 10*6/uL (4.50-5.90); RED CELL DISTRI WIDTH 19.1 % (0-14.5); WHITE BLOOD COUNT 6.5 10*3/uL (4.8-10.8)
[2018-12-06 06:10] LABS: INTERNATIONAL NORM RATIO 1.1 (2.0-3.5)
[2018-12-06 06:21] LABS: ALBUMIN 2.6 gm/dl (3.1-4.5); CREATININE 6.95 mg/dL (0.70-1.30); TOTAL PROTEIN 5.7 gm/dL (6.4-8.2)
[2018-12-06 06:25] LABS: TROPONIN I 0.06 ng/ml (<0.045)
[2019-03-01] MEDS ORDERED: NORCO 5-325 TA1 EACH PO (15:35)
[2019-03-01] MEDS ORDERED: LOSARTAN POTASS25 M1 PO (17:29)
[2019-03-01] MEDS ORDERED: METOPROLOL25 MG PO (17:30)
[2019-03-01] MEDS ORDERED: I-VITE TABLET1 EACH PO (17:30)
[2019-03-05] MEDS ORDERED: NAFCILLIN2 GM IJ (15:44)
== END 2018-12-06 09:07 | disposition short-term general hospital (02) ==
LOC: ED 05:29
PROVIDERS: Emergency Medicine Emergency Medical Services
DX: T82.838A Hemorrhage due to vascular prosthetic devices, implants and grafts, initial encounter (principal); D50.0 Iron deficiency anemia secondary to blood loss (chronic); E11.22 Type 2 diabetes mellitus with diabetic chronic kidney disease; I13.2 Hypertensive heart and chronic kidney disease with heart failure and with stage 5 chronic kidney disease, or end stage renal disease; I50.9 Heart failure, unspecified; N18.6 End stage renal disease; E78.5 Hyperlipidemia, unspecified; E11.40 Type 2 diabetes mellitus with diabetic neuropathy, unspecified; E11.51 Type 2 diabetes mellitus with diabetic peripheral angiopathy without gangrene; Z79.82 Long term (current) use of aspirin; Z79.899 Other long term (current) drug therapy; Z79.4 Long term (current) use of insulin; Y83.8 Other surgical procedures as the cause of abnormal reaction of the patient, or of later complication, without mention of misadventure at the time of the procedure; Y92.89 Other specified places as the place of occurrence of the external cause

== ENCOUNTER 2018-12-22 07:33 | Emergency (ER) | payer MEDICARE, OTHER ==
[2018-12-22 07:54] LABS: BASO % 0.6 % (0.0-1.0); EOS # 0.2 10*3/uL (0.0-0.4); EOS % 2.4 % (1.0-4.0); HEMATOCRIT 30.7 % (42.0-52.0); HEMOGLOBIN 9.5 g/dl (14.0-18.0); LYMPH # 1.4 10*3/uL (1.3-4.4); MEAN CELL VOLUME 106.6 fl (80.0-94.0); MEAN CORPUSCULAR HGB CONC 30.9 g/dl (33.0-37.0); MEAN PLATELET VOLUME 9.3 fl (9.6-12.3); MONO # 0.5 10*3/uL (0.1-1.0); MONO % 6.9 % (3.0-9.0); NEUT # 4.7 10*3/uL (2.3-7.9); NEUT % 69.7 % (47.0-73.0); PLATELET COUNT AUTOMATED 160 10*3/uL (130-400); RED BLOOD COUNT 2.88 10*6/uL (4.50-5.90); RED CELL DISTRI WIDTH 16.3 % (0-14.5); WHITE BLOOD COUNT 6.8 10*3/uL (4.8-10.8)
[2018-12-22 08:05] LABS: ACT PARTIAL THROMBO TIME 26.6 SECONDS (20.8-31.5)
[2018-12-22 08:12] LABS: CREATININE 6.21 mg/dL (0.70-1.30); POTASSIUM 4.7 mmol/L (3.5-5.1); TOTAL PROTEIN 6.3 gm/dL (6.4-8.2)
[2019-03-01] MEDS ORDERED: NORCO 5-325 TA1 EACH PO (15:35)
[2019-03-01] MEDS ORDERED: LOSARTAN POTASS25 M1 PO (17:29)
[2019-03-01] MEDS ORDERED: METOPROLOL25 MG PO (17:30)
[2019-03-01] MEDS ORDERED: I-VITE TABLET1 EACH PO (17:30)
[2019-03-05] MEDS ORDERED: NAFCILLIN2 GM IJ (15:44)
== END 2018-12-22 09:33 | disposition short-term general hospital (02) ==
LOC: ED 07:33
PROVIDERS: Emergency Medicine
DX: T82.838A Hemorrhage due to vascular prosthetic devices, implants and grafts, initial encounter (principal); E11.22 Type 2 diabetes mellitus with diabetic chronic kidney disease; I13.2 Hypertensive heart and chronic kidney disease with heart failure and with stage 5 chronic kidney disease, or end stage renal disease; I50.9 Heart failure, unspecified; N18.6 End stage renal disease; E11.40 Type 2 diabetes mellitus with diabetic neuropathy, unspecified; E11.51 Type 2 diabetes mellitus with diabetic peripheral angiopathy without gangrene; E78.5 Hyperlipidemia, unspecified; Z79.899 Other long term (current) drug therapy; Z79.82 Long term (current) use of aspirin; Z79.4 Long term (current) use of insulin; Z99.2 Dependence on renal dialysis; Y83.9 Surgical procedure, unspecified as the cause of abnormal reaction of the patient, or of later complication, without mention of misadventure at the time of the procedure; Y92.098 Other place in other non-institutional residence as the place of occurrence of the external cause

== ENCOUNTER 2019-06-29 13:28 | Inpatient (IN) | payer MEDICARE ==
[2019-06-29] VITALS (9 sets, daily range): BP systolic 97–136; BP diastolic 53–92
[~2019-06-29] VITALS: Ht 188 cm; Wt 78.6 kg
--- NOTE | ~2019-06-29 | CON ---
[place], [place] REPORT OF CONSULTATION NAME: ERICA ROMERO UNIT #: [id number] ROOM: 509 DOCTOR: KAYLYN CHINGKELLEE BIRTHDATE: [birth year] DOS: 07/01/2019 GASTROENDOSCOPIC REPORT HISTORY OF PRESENT ILLNESS: This is an 79-year-old patient who has presented with chief complaint of anemia, concern about the GI bleed. I have been asked for assessment of the patient for EGD. PAST MEDICAL HISTORY: Associated with GI bleed, hypertension, hyperlipidemia, diabetes mellitus, dementia, endocarditis, CHF, end-stage renal disease. PAST SURGICAL HISTORY: Hemodialysis catheter fistula. SOCIAL HISTORY: Nonsmoker, nonalcohol consumer. FAMILY HISTORY: Noncontributory. ALLERGIES: No known medications. MEDICATIONS: List was reviewed. REVIEW OF SYSTEMS: In general: HEENT: Denies double vision, blurred vision. RESPIRATORY: Denies acute shortness of breath. CARDIOVASCULAR: Denies acute chest pain. DIGESTIVE SYSTEM: No hematemesis, no hematochezia, guaiac positive. PHYSICAL EXAMINATION: VITAL SIGNS: Frail patient. HEENT: Head normocephalic, nontraumatic. Mouth and buccal mucosa benign. NECK: Supple, no thyromegaly, no cervical lymphadenopathy. CHEST: Symmetric anatomy, equal expansion. No wheeze, no rhonchi. HEART: Normal sinus rhythm, no gallop, no murmur. ABDOMEN: Soft. No hepato-organomegaly. Bowel sounds present. No pulsatile mass. EXTREMITIES: No cyanosis, 1+ pedal edema. NEUROLOGIC: Alert and slow orientation. LABORATORY DATA: Labs reviewed and records reviewed. His latest blood work has been reassessed. Blood cultures have been negative. Latest CBC: H and H of 8 and 26 with platelets of 184. Comprehensive metabolic panel: BUN and creatinine 66 and 6.5 respectively. GFR of 8. Electrolyte balance, liver function tests within normal limits. MRSA study active surveillance, negative for MRSA. Vitamin B12, folate was within normal limit. Hemoglobin A1c 6.1. Labs reviewed, records reviewed. PLAN AND DISCUSSION: Anemia, guaiac positivity. Under investigation. OTHER ADJUNCTIVE DIAGNOSES: As outlined in paragraph of past medical, surgical history including renal failure including congestive heart failure including [place], [place] REPORT OF CONSULTATION NAME: ERICA ROMERO UNIT #: [id number] ROOM: 509 DOCTOR: KAYLYN CHING,KELLEE BIRTHDATE: [birth year] diabetes mellitus, dialysis dependency all has been reviewed. KELLEE PATIÑO MD CM:CONSTR:REPORT OF CONSULTATION 1754 07/02/19 0113 interface
--- NOTE | ~2019-06-29 | EKG ---
[place], [place] ELECTROCARDIOGRAM REPORT NAME: ERICA ROMERO UNIT #: [id number] ROOM: 509 DOCTOR: LEOPOLDO DRAFT REPORT BIRTHDATE: [birth year] [facility] Test Date: 2019-06-29 Test Time: 13:54:29 Pat Name: ERICA ROMERO Department: Room: 509 Gender: M Casing Tier: Teagan Guo : 1940 Requested By: LEW ALCANTAR Order Number: [id number] Reading MD: Nolan Chun MD Measurements Intervals [place] Rate: 75 P: 55 RI: 181 QRS: -25 QRSD: 92 T: 241 QT: 424 QTc: 474 Interpretive Statements Sinus rhythm Borderline left axis deviation Abnormal R-wave progression, late transition Borderline T wave abnormalities Compared to ECG 06/26/2019 06:07:54 T-wave abnormality now present Intraventricular conduction delay no longer present Myocardial infarct finding no longer present Electronically Signed On 07-01-2019 13:11:19 PDT by Nolan Chun MD CM:EKGRPT:ELECTROCARDIOGRAM REPORT [id number] 1311 LEW BISWAS DRAFT REPORT LEW ALCANTAR DO
--- NOTE | ~2019-06-29 | O ---
[place], [place] OPERATIVE NOTE NAME: ERICA ROMERO UNIT #: [id number] ROOM: 509 DOCTOR: KELLEE PATIÑO MD BIRTHDATE: [birth year] DOS: 07/01/2019 INDICATIONS: An 79-year-old patient who has presented with guaiac positivity, anemia, undergoing investigation. PROCEDURE: Today's procedure part of investigation is panendoscopy plus biopsy and brush for fungal study of the esophagus. PREMEDICATION: Propofol. SCOPE: Olympus forward-viewing gastroscope Q10 video. REPORT: After putting the patient in left lateral position and application of lubricant to the scope, the scope was introduced. Thereafter, under direct visualization, advanced through the length of esophagus without difficulty. Mild esophageal candidiasis was noticed. [place] for fungal study was done. Small hiatal hernia seen. Gastric pouch was entered. Gastritis was noticed. Duodenum was entered. Duodenitis and multiple small duodenal ulcers were identified, photographed. Antral biopsy obtained. The patient extubated. Tolerated the procedure well. IMPRESSION: Esophageal moniliasis, hiatal hernia, gastritis, duodenitis, duodenal ulcers, multiple small ones. PLAN AND DISCUSSION: Protonix 40 mg a day would do. We will start feeding this gentleman. KELLEE PATIÑO MD CM:OPRECORD:OPERATIVE NOTE 1814 KELLEE PATIÑO MD 07/01/19 2100 interface
[~2019-06-29 13:28] MED LIST changes: +I-VITE TABLET1 EACH PO; +LOSARTAN POTASS25 M1 PO; +METOPROLOL25 MG PO; +NAFCILLIN2 GM IJ; +NORCO 5-325 TA1 EACH PO
[2019-06-29 14:14] LABS: BASO % 0.4 % (0.0-1.0); EOS # 0.2 10*3/uL (0.0-0.4); EOS % 2.6 % (1.0-4.0); HEMATOCRIT 22.9 % (42.0-52.0); HEMOGLOBIN 7.5 g/dl (14.0-18.0); LYMPH # 1.2 10*3/uL (1.3-4.4); LYMPH % 17.1 % (27.0-41.0); MEAN CELL VOLUME 100.9 fl (80.0-94.0); MEAN CORPUSCULAR HGB CONC 32.8 g/dl (33.0-37.0); MEAN PLATELET VOLUME 9.3 fl (9.6-12.3); MONO # 0.8 10*3/uL (0.1-1.0); MONO % 11.4 % (3.0-9.0); NEUT # 4.9 10*3/uL (2.3-7.9); NEUT % 68.1 % (47.0-73.0); PLATELET COUNT AUTOMATED 180 10*3/uL (130-400); RED BLOOD COUNT 2.27 10*6/uL (4.50-5.90); RED CELL DISTRI WIDTH 16.1 % (0-14.5); WHITE BLOOD COUNT 7.2 10*3/uL (4.8-10.8)
[2019-06-29 14:24] LABS: ACT PARTIAL THROMBO TIME 30.2 SECONDS (20.0-32.1); INTERNATIONAL NORM RATIO 1.1 (2.0-3.5)
[2019-06-29 14:34] LABS: ALBUMIN 2.7 gm/dl (3.1-4.5); CREATININE 4.25 mg/dL (0.70-1.30); POTASSIUM 4.3 mmol/L (3.5-5.1); TOTAL PROTEIN 6.5 gm/dL (6.4-8.2)
[2019-06-29 14:38] LABS: TROPONIN I 0.18 ng/ml (<0.045)
--- NOTE | 2019-06-29 14:38 | NUR ---
PT'S TRIPONIN @ 0.180 PER LAB,DR ALCANTAR NOTIFIED.
[2019-06-29 15:20] LABS: BILIRUBIN NEGATIVE (NEGATIVE); BLOOD TRACE-INTACT (NEGATIVE); CLARITY CLEAR (CLEAR); COLOR YELLOW (YELLOW); GLUCOSE TRACE (NEGATIVE); KETONE NEGATIVE (NEGATIVE); LEUKO ESTERASE NEGATIVE (NEGATIVE); NITRITE NEGATIVE (NEGATIVE); SPECIFIC GRAVITY 1.015 (1.005-1.030); UROBILINOGEN 0.2 E.U./dl (0.2-1.0)
[2019-06-29 15:36] LABS: BACTERIA 1+; RBC 0-2 rbc/hpf (0-2)
--- NOTE | 2019-06-29 16:31 | NUR ---
INCONTINENT OF STOOL. GOWN/LINENS CHANGED.
--- NOTE | 2019-06-29 17:33 | NUR ---
PT HAS DISPLAYED GROWING CONFUSION, ANGRY OUTBURSTS AND THREATS OF PHYSICAL COMBATIVENESS THIS EVENING AND WILL NOT EVEN ANSWER SIMPLE QUESTIONS ABOUT AGREEING TO BE ADMITTED OR NOT AND JUST SCREAMS PROFANITY AND THREATENS VIOLENCE. 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 DR SCOTT MADE AWARE. NEW ORDERS PENDING.
--- NOTE | 2019-06-29 18:19 | NUR ---
A 79, admitted to [facility], under the services of MENDEZ Mark DO with a diagnosis of GI BLEED, SYNCOPE, ACUTE BLOOD LOSS AND ANEMIA. Chief complaint is FELL OUT OF BED AND HIT HEAD. Patient arrived via stretcher from ER. Monitor applied. Initial assessment completed. Vital signs taken and recorded. MENDEZ MARK DO notified of admission to the unit. Orders received. See assessment for past medical history, medications and allergies. Patient and/or family oriented to unit. [facility] visitation policy reviewed. Clothing/patient valuable form completed. CHARLETTE ROUSE
[2019-06-29] MEDS ORDERED: HUMALOG100 UNIT/2 SQ ×2 (18:34→18:35)
[2019-06-29] MEDS ORDERED: APRESOLINE25 MG PO (18:35)
[2019-06-29] MEDS ORDERED: HYDROXYZINE HCL25 MG PO (18:37)
[2019-06-29] MEDS ORDERED: LANTUS SOL100 UNIT/1 SQ (18:38)
[2019-06-29] MEDS ORDERED: NYSTATIN CREAM15 GM T (18:41)
[2019-06-29] MEDS ORDERED: REMERON15 M2 PO (18:43)
[2019-06-29] MEDS ORDERED: TYLENOL325 M3 PO (18:46)
--- NOTE | 2019-06-29 19:10 | NUR ---
CALLED . NOTIFIED THAT MEDICATION RECCONCILIATION IS DONE AND THE NEED FOR WOUND CARE ORDERS.
--- NOTE | 2019-06-29 20:08 | NUR ---
DR. PATIÑO NOTIFIED OF CONSULT.
--- NOTE | 2019-06-29 20:14 | NUR ---
DR. AMEZCUA'S ANSWERING SERVICE NOTIFIED OF CONSULT.
--- NOTE | 2019-06-29 20:44 | NUR ---
DR. AMEZCUA NOTIFIFED OF CONSULT.
--- NOTE | 2019-06-29 23:24 | NUR ---
ASSUMED CARE OF PATIENT AT THIS TIME. PATIENT RESTING IN BED, COVERED IN MULTIPLE BLANKETS. NO S/S OF DISTRESS. CALL LIGHT IN REACH, IN SIGHT OF NURSING STATION. PATIENT OCCASIONALLY YELLS OUT NONSENSE PHRASES, THEN SETTLES BACK TO SLEEP.
[2019-06-30] VITALS: BP 104/58
--- NOTE | 2019-06-30 00:21 | NUR ---
PATIENT EXPERIENCED 16 BEATS OF VTACH ON THE MONITOR. CALLED DR ADDISON TO NOTIFY HIM. NEW LAB ORDERS PLACED.
[2019-06-30 00:50] LABS: CREATININE 4.89 mg/dL (0.70-1.30); POTASSIUM 4.4 mmol/L (3.5-5.1)
[2019-06-30 04:00] VITALS: BP 115/61
[2019-06-30 05:41] LABS: BASO % 0.6 % (0.0-1.0); EOS # 0.2 10*3/uL (0.0-0.4); EOS % 3.1 % (1.0-4.0); HEMATOCRIT 26.5 % (42.0-52.0); HEMOGLOBIN 8.6 g/dl (14.0-18.0); LYMPH # 1.2 10*3/uL (1.3-4.4); LYMPH % 17.2 % (27.0-41.0); MEAN CELL VOLUME 98.9 fl (80.0-94.0); MEAN CORPUSCULAR HGB 32.1 pg (27.0-31.0); MEAN CORPUSCULAR HGB CONC 32.5 g/dl (33.0-37.0); MEAN PLATELET VOLUME 9.6 fl (9.6-12.3); MONO # 0.7 10*3/uL (0.1-1.0); MONO % 10.8 % (3.0-9.0); NEUT # 4.6 10*3/uL (2.3-7.9); PLATELET COUNT AUTOMATED 182 10*3/uL (130-400); RED BLOOD COUNT 2.68 10*6/uL (4.50-5.90); RED CELL DISTRI WIDTH 16.5 % (0-14.5); WHITE BLOOD COUNT 6.7 10*3/uL (4.8-10.8)
[2019-06-30 05:46] LABS: ACT PARTIAL THROMBO TIME 30.1 SECONDS (20.0-32.1); INTERNATIONAL NORM RATIO 1.1 (2.0-3.5)
[2019-06-30 06:02] LABS: ALBUMIN 2.7 gm/dl (3.1-4.5); CREATININE 5.14 mg/dL (0.70-1.30); POTASSIUM 4.5 mmol/L (3.5-5.1); TOTAL PROTEIN 6.6 gm/dL (6.4-8.2)
[2019-06-30 06:08] LABS: FREE T4 0.71 ng/dl (0.76-1.46)
[2019-06-30 06:10] LABS: THYROID STIM HORMONE (HS) 6.22 uIU/ml (0.358-4.75)
[2019-06-30 07:51] LABS: VITAMIN D, 25-HYDROXY 44.7 ng/mL (30-100)
[2019-06-30 08:00] VITALS: BP 128/68
--- NOTE | 2019-06-30 08:30 | NUR ---
DR PATIÑO CALLED WITH LABS
--- NOTE | 2019-06-30 11:32 | NUR ---
UP TO RECLINER WITH MAX ASSIST X 2
[2019-06-30 12:00] VITALS: BP 134/74
--- NOTE | 2019-06-30 12:30 | NUR ---
DR AMEZCUA CALLED IN AND WAS UPDATED
--- NOTE | 2019-06-30 15:29 | NUR ---
SAUSAGE MACHINE OPERATOR UPDATED ON PT BEING DOWNGRADED TO MS
[2019-06-30 16:00] VITALS: BP 123/66
--- NOTE | 2019-06-30 17:42 | NUR ---
PT SHAVED AND DIAPER CHANGED AND BOTTOM CLEANED EATING DINNER, THEN WILL TRANSFER TO 509
--- NOTE | 2019-06-30 18:34 | NUR ---
TRANSFERRED TO 509
[2019-06-30 20:00] VITALS: BP 137/74
[2019-07-01] VITALS (10 sets, daily range): BP systolic 116–163; BP diastolic 58–96
[2019-07-01 06:24] LABS: BASO % 0.5 % (0.0-1.0); EOS # 0.2 10*3/uL (0.0-0.4); EOS % 2.1 % (1.0-4.0); HEMATOCRIT 26.1 % (42.0-52.0); HEMOGLOBIN 8.4 g/dl (14.0-18.0); LYMPH # 1.4 10*3/uL (1.3-4.4); LYMPH % 17.4 % (27.0-41.0); MEAN CELL VOLUME 98.9 fl (80.0-94.0); MEAN CORPUSCULAR HGB 31.8 pg (27.0-31.0); MEAN CORPUSCULAR HGB CONC 32.2 g/dl (33.0-37.0); MEAN PLATELET VOLUME 9.8 fl (9.6-12.3); MONO # 0.8 10*3/uL (0.1-1.0); MONO % 10.3 % (3.0-9.0); NEUT # 5.7 10*3/uL (2.3-7.9); NEUT % 69.2 % (47.0-73.0); PLATELET COUNT AUTOMATED 184 10*3/uL (130-400); RED BLOOD COUNT 2.64 10*6/uL (4.50-5.90); RED CELL DISTRI WIDTH 15.9 % (0-14.5); WHITE BLOOD COUNT 8.2 10*3/uL (4.8-10.8)
[2019-07-01 06:32] LABS: ALBUMIN 2.8 gm/dl (3.1-4.5); CREATININE 6.5 mg/dL (0.70-1.30); POTASSIUM 4.9 mmol/L (3.5-5.1); TOTAL PROTEIN 6.5 gm/dL (6.4-8.2)
--- NOTE | 2019-07-01 07:31 | NUR ---
TALKED TO DR PATIÑO REGARDING CONSULT FOR GI BLEED. SEE NEW ORDERS.
--- NOTE | 2019-07-01 09:00 | NUR ---
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
--- NOTE | 2019-07-01 09:14 | NUR ---
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 -JAMES Giron
--- NOTE | 2019-07-01 09:23 | NUR ---
PHYSICAL THERAPY Physical therapy evaluation completed, 5E. FUll details to follow. Moderate complexity determined after evaluation/ chart review, [id number]. PT to work on strength, balance, gait, safety, transfers. Recommending returning to SNF at discharge. Thank you Meghann Rajput, PT, DPT
--- NOTE | 2019-07-01 09:32 | NUR ---
Occupational therapy orders received and nursing screen received. OT evaluation completed in full on floor five. Patient precautions include fall risk, bed alarm, confusion, ww use, and tandem gait. Per OT eval, OT recommends SNF. Patient would benefit from continued OT treatment to maximize safety and independence during ADLs and mobility. Patient complexity is moderate, [id number]. Thank you for the referral. Rafia Lloyd, OTR/L
--- NOTE | 2019-07-01 09:33 | NUR ---
NOTIFIED DIALYSIS COMPLIANCE REPRESENTATIVE DEALER NURSE THAT PATIENT IS SCHEDULED FOR EGD THIS EVENING. SHE STATED THAT SOMEONE WILL BE HERE FOR DIALYSIS AROUND 1PM AND THEY WILL GET PATIENT FOR DIALYSIS THEN
--- NOTE | 2019-07-01 09:38 | NUR ---
ERICA ROMERO [id number] Please refer to the physician's history and physical for past medical history, comorbid conditions, and allergies. Diagnosis: GI BLEED SYNCOPE ACUTE BLOOD LOSS ANEMIA Rickey Score: 15,AT RISK WOUND DESCRIPTIONS: Wound Number: 1 Location of the wound: right lower leg Thickness: Full Size: 2.0cm x 3.7cm x 0.1cm Tunneling: none Undermining: none Sinus Tract: none Presence of Exudate: Purulent Amount: Light Color: Yellow, red Odor: None Periwound Skin Appearance: Erythema Wound edges: approximated Pain (associated with wound): none at time of assessment How does patient state this happened? pt stated he fell but is unsure how this happened Wound Number: 2 Location of the wound: right buttocks Type of wound: stage 2 Thickness: Partial Size: 1.5cm x 1.0cm x 0.1cm Tunneling: none Undermining: none Sinus Tract: none Presence of Exudate: Serosanguineous Amount: Light Color: Red Odor: None Periwound Skin Appearance: Normal Wound edges: approximated Pain (associated with wound): none at time of assessment How does patient state this happened? pt stated he fell but is unsure how this happened Wound Number: 3 Location of the wound: right knee Thickness: Full Size: 2.2cm x 1.5cm x 0.1cm Tunneling: none Undermining: none Sinus Tract: none Presence of Exudate: Purulent Amount: Light Color: Yellow, red Odor: None Periwound Skin Appearance: Erythema Wound edges: approximated Pain (associated with wound): none at time of assessment How does patient state this happened? pt stated he fell but is unsure how this happened Wound Number: 4 Location of the wound: left lower leg proximal Thickness: Full Size: 3.7cm x 2.8cm x 0.1cm Tunneling: none Undermining: none Sinus Tract: none Presence of Exudate: Purulent Amount: Light Color: Yellow, red Odor: None Periwound Skin Appearance: Erythema Wound edges: approximated Pain (associated with wound): none at time of assessment How does patient state this happened? pt stated he fell but is unsure how this happened Wound Number: 5 Periarea is bright red in color with several open areas that are partial thickness. Serosanguineous drainage noted. Patient is incontient of urine and feces at time of assessment. Pericare provide at time of assessment. Wound Number: 6 Location of the wound: right great toe Thickness: Full Size: 0.5cm x 0.5cm x 0.1cm Tunneling: none Undermining: none Sinus Tract: none Presence of Exudate: Purulent Amount: Light Color: Yellow, red, brown Odor: None Periwound Skin Appearance: Erythema Wound edges: approximated Pain (associated with wound): none at time of assessment How does patient state this happened? pt stated he fell but is unsure how this happened Wound Number: 7 Location of the wound: left lower leg distal Thickness: Full Size: 3.2cm x 2.7cm x 0.1cm Tunneling: none Undermining: none Sinus Tract: none Presence of Exudate: Serosanguineous Amount: Light Color: Yellow, red Odor: None Periwound Skin Appearance: Erythema Wound edges: approximated Pain (associated with wound): none at time of assessment How does patient state this happened? pt stated he fell but is unsure how this happened Wound Number: 8 Location of the wound: scrotum Thickness: Partial Size: 0.5cm x 0.5cm x 0.1cm Tunneling: none Undermining: none Sinus Tract: none Presence of Exudate: Serosanguineous Amount: Light Color: Red Odor: None Periwound Skin Appearance: Erythema Wound edges: approximated Pain (associated with wound): none at time of assessment How does patient state this happened? pt stated he fell but is unsure how this happened Surface the patient is resting on: Isoflex SKIN PREVENTION RECOMMENDATION: 1. Pressure redistribution support surface as appropriate 2. Elevate heels 3. Remove boots/TEDS every shift and reapply 4. Head of bed 30 degrees as tolerated 5. Assess nutrition and hydration 6. Manage moisture 7. Avoid the use of containment devices while in bed 8. Use absorptive products on surfaces limit layers of linens on bed 9. Turn and reposition every 1-2 hours in bed and every 1 hour in chair as tolerated 10. Weight shifts every 15 minutes while up in chair 11. Offloading with pillows or device to keep heels elevated off bed 12. Monitor skin at least every shift 13. Inspect under medical devices twice a day WOUND TREATMENT RECOMMENDATIONS: Heel raiser pro boots while in bed. Wheelchair cushion when oob Venous and arterial studies of bilateral lower extermities due to wounds. D/C stage 1 guidelines to right lower leg and right buttocks. D/C stage guidelines to left lower leg. D/C MASD orders to cathy. Consult podiatry for possible debridement of bilateral lower extremities if studies allow. Cleanse right great toe with nss and apply bactroban and cover with bandaid bid Cleanse scrotum and periarea with soap and water and apply calazime every shift and prn for soiling Full thickness guidelines: right lower leg, right knee, left lower leg proximal and left lower leg distal with nss and apply sureprep around the wound therahoney to wound bed and cover with optifoam gentle daily and prn for soiling. Stage 2 guidelines: Cleanse right buttocks with soap and water and apply calazime every shift and prn for soiling.
--- NOTE | 2019-07-01 11:15 | NUR ---
PT HAS NEW WOUNDS THAT WERE FOUND BY WOUND NURSE RADHA TODAY, SCROTUM OPEN AREA AND LEFT LOWER LEG DISTAL, PT DOES NOT WANT PICTURES OF WOUNDS TAKEN AT THIS TIME.
--- NOTE | 2019-07-01 11:28 | NUR ---
Dr. Givens notified of wound care recommendations.
--- NOTE | 2019-07-01 12:54 | NUR ---
PODIATRY RESIDENT NOTIFIED OF NEW CONSULT
--- NOTE | 2019-07-01 13:50 | NUR ---
OT NOTE Pt was seen this P.M. 1:1 for 20 minute OT session. Upon arrival pt was sitting upright in the recliner. Pt identified by name and and had no complaints at this time. Pt completed multiple sit to stand transfers from chair level with modA and use of w/w for UE support. Educated pt on techniques and proper hand placement for increased I in functional transfers. Challenged pt's static standing tolerance needed for increased I in self care tasks and functional transfers and pt was able to tolerate aprox 3 minutes at a time before sitting due to fatigue. Throughout static standing pt required modA to correct retrograde posture and multiple LOB that occured to the right. Pt was left sitting upright in the recliner with family member at bedside, call light in hand, and tray table in place. Continue with rec D/C plan to SNF. TOBI Anderson
--- NOTE | 2019-07-01 17:39 | NUR ---
PT SENT TO SURGERY VIA BED
--- NOTE | 2019-07-01 18:32 | NUR ---
REPORT RECEIVED FROM SURGERY, PT WILL RETURN SHORTLY
--- NOTE | 2019-07-01 18:39 | NUR ---
RETURN FROM SURGERY/EGD
--- NOTE | 2019-07-01 18:51 | NUR ---
SCD ON PATIENT BILATERAL LOWER EXTREMITIES PER ORDERS
--- NOTE | 2019-07-01 20:00 | NUR ---
VISITING WITH . NO DISTRESS NOTED. RESPIRATIONS EASY. LUNGS DIMINISHED. PULSE OX 99% RA. SCDS IN PLACE. CALL LIGHT WITHIN REACH. NO VOICED COMPLAINTS. BED ALARM MAINTAINED
[2019-07-01 20:12] LABS: BASO # 0.1 10*3/uL (0.0-0.1); BASO % 0.6 % (0.0-1.0); EOS # 0.3 10*3/uL (0.0-0.4); HEMATOCRIT 28.9 % (42.0-52.0); HEMOGLOBIN 9.4 g/dl (14.0-18.0); LYMPH # 1.4 10*3/uL (1.3-4.4); LYMPH % 15.8 % (27.0-41.0); MEAN CELL VOLUME 98.3 fl (80.0-94.0); MEAN CORPUSCULAR HGB CONC 32.5 g/dl (33.0-37.0); MONO # 0.7 10*3/uL (0.1-1.0); MONO % 8.6 % (3.0-9.0); NEUT # 6.1 10*3/uL (2.3-7.9); NEUT % 71.4 % (47.0-73.0); PLATELET COUNT AUTOMATED 199 10*3/uL (130-400); RED BLOOD COUNT 2.94 10*6/uL (4.50-5.90); RED CELL DISTRI WIDTH 15.9 % (0-14.5); WHITE BLOOD COUNT 8.5 10*3/uL (4.8-10.8)
--- NOTE | 2019-07-01 22:00 | NUR ---
CONFUSED. YELLING OUT. ORIENTED TO SELF ONLY. RESPIRATIONS EASY. AGITATED "WHERE IS SHE ()?" ATTEMPTED TO REORIENT AND CALM PATIENT. BED ALARM MAINTAINED
--- NOTE | 2019-07-01 23:41 | NUR ---
24 HR chart check completed.
[2019-07-02] VITALS: BP 126/88
--- NOTE | 2019-07-02 | NUR ---
REMAINS AGITATED. RESPIRATIONS EASY. 1:1 PROVIDED IN ATTEMPTS TO CALM/REORIENT PATIENT. ATTMEPTS UNSUCCESSFUL. CALL LIGHT WITHIN REACH. BED ALARM MAINTAINED
--- NOTE | 2019-07-02 05:53 | NUR ---
Upon discharge recommend patient to follow up for wound care in outpatient setting continue current wound care orders at discharging facility.
[2019-07-02 06:38] LABS: BASO % 0.2 % (0.0-1.0); EOS # 0.2 10*3/uL (0.0-0.4); EOS % 1.8 % (1.0-4.0); HEMATOCRIT 27.2 % (42.0-52.0); HEMOGLOBIN 8.8 g/dl (14.0-18.0); LYMPH # 0.8 10*3/uL (1.3-4.4); LYMPH % 9.1 % (27.0-41.0); MEAN CELL VOLUME 96.5 fl (80.0-94.0); MEAN CORPUSCULAR HGB 31.2 pg (27.0-31.0); MEAN CORPUSCULAR HGB CONC 32.4 g/dl (33.0-37.0); MEAN PLATELET VOLUME 9.8 fl (9.6-12.3); MONO # 0.6 10*3/uL (0.1-1.0); MONO % 6.5 % (3.0-9.0); PLATELET COUNT AUTOMATED 212 10*3/uL (130-400); RED BLOOD COUNT 2.82 10*6/uL (4.50-5.90); RED CELL DISTRI WIDTH 15.6 % (0-14.5); WHITE BLOOD COUNT 8.6 10*3/uL (4.8-10.8)
--- NOTE | 2019-07-02 06:40 | NUR ---
TRANSPORTED TO DIALYSIS VIA BED.
[2019-07-02 07:04] LABS: CREATININE 7.48 mg/dL (0.70-1.30)
--- NOTE | 2019-07-02 08:00 | NUR ---
PT RESTING IN DIALYSIS IN BED. C/O COUGH. RESP-EASY AND REGULAR. CALL LIGHT IN REACH. DIALYSIS NURSE AT HIS SIDE.
--- NOTE | 2019-07-02 08:10 | NUR ---
SPOKE WITH DR. MEDINA, MADE AWARE PT HAS DRY NONPROD COUGH. NEEDS SOMETHING.
--- NOTE | 2019-07-02 08:35 | NUR ---
MEDICATED WITH TESSELON FRANC TOLERATED. PT STILL IN DIALYSIS. CALL LIGHT IN REACH.
--- NOTE | 2019-07-02 09:00 | NUR ---
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
--- NOTE | 2019-07-02 09:42 | NUR ---
OT NOTE Attempted to see pt this A.M. for OT session and upon arrival pt was out of the room for dialysis. Will check back at a later time/date and continue with POC as able. PRABHJOT Anderson/Preston
--- NOTE | 2019-07-02 11:53 | NUR ---
PHYSICAL THERAPY Patient is in dialysis this morning. Will check back later. ROC RUFF CAR USHER
[2019-07-02 12:09] VITALS: BP 140/98
--- NOTE | 2019-07-02 13:30 | NUR ---
PT MORNING MEDICATIONS PASSED. PT BACK FROM DIALYSIS. ALERT, PLEASANT. RESPIRATIONS EASY AN UNLABORED. CALL LIGHT IN REACH, FAMILY AT BEDSIDE
--- NOTE | 2019-07-02 13:34 | NUR ---
JAMES reached out to the patients . Patient stated the patient will be returning to [facility] at discharge. Patient is new to being longterm at [facility]. He was previously at [facility] and was transferred to [facility] on 06/21/2019. -JAMES Giron
--- NOTE | 2019-07-02 13:44 | NUR ---
PHYSICAL THERAPY Patient was eating lunch at this time. Will check back later. ROC RUFF HOPPER FILLER
--- NOTE | 2019-07-02 14:24 | NUR ---
OT NOTE Pt was seen this P.M. 1:1 for 20 minute OT session. Upon arrival pt was supine in bed. Pt identified by name and and had no complaints at this time. Pt transferred supine to sit EOB with SBA. While sitting EOB requested for pt to nakul B socks and pt was able to complete with modA due to F- sitting balance. Sit to stand completed from bed level with modA X 2 and use of w/w for UE support. Challenged pt's static standing tolerance needed for increased I in self care tasks and functional transfers. Pt was able to tolerate aprox 45 seconds before sitting due to fatigue. Attempted to complete functional mobility into the bathroom for a toilet transfer. Functional mobility was completed with modA X 2 and use of w/w with multiple R knee buckling episodes that required maxA to correct and multiple LOB due to tandem gait that also required maxA to correct. Task was downgraded to a bedside commode transfer due to risk of falling and confusion. Pt transferred on/off bedside commode with modA X 2. Pt then transferred back into bed sit to supine with Shannan. Throughout session pt presented with increased confusion as indicated by stating the change in color on the floor was the bed, attempting to lay down on it and thinking he was playing cards in the basement. Pt was left supine in bed with call light in hand, tray table in place, and bed alarm activated for safety. Continue with rec D/C plan to SNF. PRABHJOT Anderson/Preston
--- NOTE | 2019-07-02 14:26 | NUR ---
PHYSICAL THERAPY Pateint presented to therapy in supine with head of bed elevated and bed alarm activated. Patient was identified by name and on wristband. Patient gives informed consent for treatment. Patient's is present visiting with patient. Patient transferred supine to sitting at EOB with MIN A X 1. Patient sat on EOB with SBA. Patient required MIN A X 1 because he became retrogarade ,leaning back while sitting. Patient performed sit to stand transfer with MOD A X 2 from EOB to Walker. Patient stood at Walker with MOD A X 2 FOR BRIEF TIME, THEN HIS KNEEES BECAME WEAK AND HE HAD TO SIT EOB. Patient sit to stand again from EOB with MOD A X 2 with verbal cues and demonstration as to where to place hands on Walker. Patient performed ambulation with Walker and MOD A X 2 for correcting LOB REPEATEDLY !! Patient was verbal cued for locking knees into extension to prevent knees buckling and pushing down on walker with both hands. Patient performed ambulation for 5 ft. and had to sit due to multiple LOB and knees buckling. WARNING: PATIENT IS A FALL RISK ! Patient performed complained of dizziness while resting. O2 SAT was recorded as 94% and pulse was 90. Patient performed sit to stand from bedside chair with MOD A X 2. Patient performed ambulation another 6' x 1 with MOD A X 2 to prevent LOB and knees beginning to buckle, so patient had to sit in low chair brought up behind him MOD A X 2. Patient sit to stand ,again to transfer to sitting on EOB with MOD A X 2. Patient performed SPT transfer with MOD A X 2 to sitting on EOB. Patient side-scooted up to head of bed with SBA AND VERBAL CUES. Patient transferred to supine in bed with MIN A X 1. Patient was left in supine in bed with head of bed elevated and call light within reach. BED ALARM WAS ACTIVATED. BED RAILS UP. PATIENT IS VERY CONFUSED !! Patient was 1:1 with this FIRE OFFICIAL for 26 minutes total. ROC RUFF FIRE OFFICIAL Patient transferred sit to supine in ebd with MIN A X 1.
[2019-07-02 14:40] VITALS: BP 121/60
[2019-07-02 16:00] VITALS: BP 132/65
--- NOTE | 2019-07-02 19:46 | NUR ---
24 HR chart check completed.
[2019-07-02 20:00] VITALS: BP 133/58
--- NOTE | 2019-07-02 23:44 | NUR ---
NO C/O OR S/S OF DISTRESS NOTED AT THIS TIME. BED IS LOW, LOCKED, ALARMED, AND CALL LIGHT IS WITHIN REACH. WILL CONTINUE TO MONITOR, SEE SHIFT ASSESSMENT. Neurological: sleeping, arouses easily ORIENTED TO PERSON Respiratory: NONLABORED, ROOM AIR Breath sounds: DIMINISHED Cough: NONE NOTED Cardiovascular: DENIES CP/PRESSURE, TRACE BLE EDEMA, PPP Gastrointestinal: NORMO X4 QUADS, DENIES N/V/D/C, SOFT NONTENDER, NONDISTENDED Genito/Urinary: HEMODIALYSIS:--MON, LEFT ARM FISTULA/LEFT CHEST TESIO, SCANT URINE PRODUCTION Musculoskeketal: MULTIPLE WOUNDS, AMBULATORY W/ WALKER AND ASSIST ARTI WOODS
[2019-07-03] VITALS: BP 137/77
--- NOTE | 2019-07-03 06:20 | NUR ---
PATIENT AWAKENS EASILT FOR ADMINISTRATION OF AM MEDICATIONS AND BEDSIDE FINGER STICK. BLOOD GLUCOSE 150. CALL LIGHT IS WITHIN REACH.
[2019-07-03 06:31] LABS: BASO % 0.6 % (0.0-1.0); EOS # 0.2 10*3/uL (0.0-0.4); EOS % 3.4 % (1.0-4.0); HEMATOCRIT 25.7 % (42.0-52.0); HEMOGLOBIN 8.4 g/dl (14.0-18.0); LYMPH # 0.9 10*3/uL (1.3-4.4); LYMPH % 14.6 % (27.0-41.0); MEAN CELL VOLUME 98.8 fl (80.0-94.0); MEAN CORPUSCULAR HGB 32.3 pg (27.0-31.0); MEAN CORPUSCULAR HGB CONC 32.7 g/dl (33.0-37.0); MEAN PLATELET VOLUME 10.2 fl (9.6-12.3); MONO # 0.8 10*3/uL (0.1-1.0); MONO % 12.2 % (3.0-9.0); NEUT # 4.4 10*3/uL (2.3-7.9); NEUT % 68.4 % (47.0-73.0); PLATELET COUNT AUTOMATED 179 10*3/uL (130-400); RED CELL DISTRI WIDTH 15.5 % (0-14.5); WHITE BLOOD COUNT 6.4 10*3/uL (4.8-10.8)
--- NOTE | 2019-07-03 07:50 | NUR ---
PT RESTING IN BED. REPOSITIONED IN BED CLEANE DUP LOOSE STOOL. SCD'S ON. RESP-EASY AND REGULAR. NO C/O AT THIS TIME. CALL LIGHT IN REACH. SEE SHIFT ASSESSMENT.
[2019-07-03 08:00] VITALS: BP 134/85
--- NOTE | 2019-07-03 09:00 | NUR ---
case management visits with patient, he will return to [facility] when medically stable, social work administrator is working on discharge arrangements
--- NOTE | 2019-07-03 09:00 | NUR ---
PHYSICAL THERAPY Patient seen this am 1;1 for therapy visit and was just awakening supine in bed upon therapist arrival. Patient identified by name / and was very talkative this morining, voicing no c/o's pain at this time. Patient needed several v/c's to stay focused on task while transfering supine to sit EOB with MOD A. Patient performed sit to stand transfer, MIN A, use of wh walker standing support, then completed SPT to bedside chair with MIN A. Patient demonstrated increased difficulty with R LE advance and has a history of R knee buckling. Patient was also able to complete seated B LE therex all planes x 10 reps each to increase LE strength. Patient remained in bedside chair as breakfast arrived with call light, tray table and body alarm for safety. Will continue per POC as tolerated, total treatment time 15 minutes. Elier Sandoval, SERVER ENGINEER
--- NOTE | 2019-07-03 09:35 | NUR ---
OT NOTE Pt was seen this A.M. 1:1 for 16 minute OT session. Upon arrival pt was supine in bed. Pt identified by name and and had no complaints at this time. Pt transferred supine to sit EOB with Shannan. Pt completed sit to stand transfer from bed level with modA and use of w/w for UE support. Challenged pt's static standing tolerance needed for increased I in self care tasks and functional transfers. Pt was able to tolerate aprox 30 seconds at a time befor sitting due to fatigue. Throughout pt presented with retrograde posture and L lateral lean that required modA to correct. Standing pivot then completed from the EOB to the recliner with modA and use of w/w. Pt had major LOB to the left while turning that required modA to correct. Pt was left sitting uproght in the recliner with call light in hand, tray table in place, and body alarm activated for safety. Continue with rec D/C plan to SNF. PRABHJOT Anderson/Preston
--- NOTE | 2019-07-03 09:58 | NUR ---
CALLED DR. MEDINA REGARDING KELP GATHERER WANTING TO KNOW IF PT IS BEING DISCHARGED.
--- NOTE | 2019-07-03 11:15 | NUR ---
PODIATRY IN ROOM WITH PT DRESSING TO FEET AND LEGS DONE BY THE DR. AT HIS SIDE. CALL LIGHT IN REACH.
--- NOTE | 2019-07-03 11:18 | NUR ---
CALLED DR. HAWKINS REGARDING PT DIALYSIS THEY WILL BE SEEING HIM SOON.
[2019-07-03] MEDS ORDERED: Humalog SQ (11:31)
[2019-07-03] MEDS ORDERED: LOPRESSOR25 MG PO (11:31)
--- NOTE | 2019-07-03 12:26 | NUR ---
SPOKE WITH SANIA AT [facility] GAVE REPORT.
--- NOTE | 2019-07-03 12:32 | NUR ---
MADE SANIA AT [facility] AWARE HIS MEDICATION WILL NEED CAUGHT UP THEY WAS HELD THIS AM FOR DIALYSIS.
--- NOTE | 2019-07-03 12:37 | NUR ---
GRADUATE TEACHER EDUCATION notified of the patient being discharged but needing to receive dailysis from [facility] today. GRADUATE TEACHER EDUCATION spoke with [facility]. They are able to transport the patient to [facility] and will need to be transported back to the [facility]. GRADUATE TEACHER EDUCATION reached out to [facility] to arrange transportation. [facility] stated they would transport the patient as soon as they are able to do so. GRADUATE TEACHER EDUCATION spoke with [facility] who stated a Chair would be ready for the patient. -JAMES Giron
--- NOTE | 2019-07-03 12:52 | NUR ---
DR. PATIÑO AWARE PT DISCHARGED. NO NEW ORDERS.
--- NOTE | 2019-07-03 12:53 | NUR ---
[id number], SEE EMAR. TOLERATED. AT HIS SIDE.
--- NOTE | 2019-07-03 12:58 | NUR ---
CLIENT MANAGER LARGE LAW faxed discharge orders to [facility]. -JAMES Giron
--- NOTE | 2019-07-03 13:28 | NUR ---
JACLYN CHAN TRANSPORTER ON THE FLOOR TO TAKE PT VIA WHEELCHAIR TO DIALYSIS.
[2019-07-03] MEDS ORDERED: FLUCONAZOLE100 MG PO (15:43)
--- NOTE | 2019-07-04 07:57 | NUR ---
PHYSICAL THERAPY CO-SIGN I approve of the Physical Therapy notes written above. Meghann Rajput, PT, DPT
--- NOTE | 2019-07-05 16:21 | NUR ---
OCCUPATIONAL THERAPY CO-SIGN I approve of the Occupational Therapy notes written above. RHEA GOMEZ OTR/[place]
[2019-07-13] MEDS ORDERED: DOXYCYCLINE100 M3 PO (14:07)
[2019-07-13] MEDS ORDERED: PREDNISONE50 MG PO (14:08)
== END 2019-07-03 14:15 | disposition other institution (70) | DRG 377 ==
LOC: ED 13:28 → 5E 16:52 → EDHOLD 16:52 → ICCU 17:13 → 5E 06-30 17:41
PROVIDERS: Emergency Medicine; Hospitalist; Internal Medicine; Internal Medicine Gastroenterology; Student in an Organized Health Care Education/Training Program; ADMIT Internal Medicine
PROC: 30233N1 Transfusion of Nonautologous Red Blood Cells into Peripheral Vein, Percutaneous Approach (ICD-10-PCS; principal; 2019-06-29)
PROC: 0DD58ZX Extraction of Esophagus, Via Natural or Artificial Opening Endoscopic, Diagnostic (ICD-10-PCS; 2019-07-01)
PROC: 0DB78ZX Excision of Stomach, Pylorus, Via Natural or Artificial Opening Endoscopic, Diagnostic (ICD-10-PCS; 2019-07-01)
PROC: 5A1D70Z Performance of Urinary Filtration, Intermittent, Less than 6 Hours Per Day (ICD-10-PCS; 2019-07-02)
DX: K29.71 Gastritis, unspecified, with bleeding (principal); N18.6 End stage renal disease; D62 Acute posthemorrhagic anemia; E44.1 Mild protein-calorie malnutrition; F03.91 Unspecified dementia, unspecified severity, with behavioral disturbance; I47.2 Ventricular tachycardia; I13.2 Hypertensive heart and chronic kidney disease with heart failure and with stage 5 chronic kidney disease, or end stage renal disease; B37.81 Candidal esophagitis; K29.81 Duodenitis with bleeding; K26.4 Chronic or unspecified duodenal ulcer with hemorrhage; K44.9 Diaphragmatic hernia without obstruction or gangrene; B35.1 Tinea unguium; R01.1 Cardiac murmur, unspecified; I87.2 Venous insufficiency (chronic) (peripheral); I50.9 Heart failure, unspecified; R55 Syncope and collapse; E78.5 Hyperlipidemia, unspecified; R79.89 Other specified abnormal findings of blood chemistry; E11.65 Type 2 diabetes mellitus with hyperglycemia; E11.22 Type 2 diabetes mellitus with diabetic chronic kidney disease; E55.9 Vitamin D deficiency, unspecified; E11.40 Type 2 diabetes mellitus with diabetic neuropathy, unspecified; E11.51 Type 2 diabetes mellitus with diabetic peripheral angiopathy without gangrene; Z84.1 Family history of disorders of kidney and ureter; Z80.7 Family history of other malignant neoplasms of lymphoid, hematopoietic and related tissues; Z80.0 Family history of malignant neoplasm of digestive organs; Z79.899 Other long term (current) drug therapy; Z79.4 Long term (current) use of insulin; Z68.22 Body mass index [BMI] 22.0-22.9, adult

== ENCOUNTER 2019-07-15 10:44 | Inpatient (IN) | payer MEDICARE ==
[~2019-07-15] VITALS: Ht 190.5 cm; Wt 75.0 kg
[2019-07-15 10:44] VITALS: BP 104/64
[~2019-07-15 10:44] MED LIST changes: +APRESOLINE25 MG PO; +FLUCONAZOLE100 MG PO; +HUMALOG100 UNIT/2 SQ; +HYDROXYZINE HCL25 MG PO; +Humalog SQ; +LANTUS SOL100 UNIT/1 SQ; +NYSTATIN CREAM15 GM T; +PREDNISONE50 MG PO; +REMERON15 M2 PO; +TYLENOL325 M3 PO
[2019-07-15 11:22] LABS: BASO % 0.1 % (0.0-1.0); EOS % 0.4 % (1.0-4.0); HEMOGLOBIN 8.4 g/dl (14.0-18.0); LYMPH # 1.5 10*3/uL (1.3-4.4); LYMPH % 19.3 % (27.0-41.0); MEAN CELL VOLUME 98.1 fl (80.0-94.0); MEAN CORPUSCULAR HGB 31.7 pg (27.0-31.0); MEAN CORPUSCULAR HGB CONC 32.3 g/dl (33.0-37.0); MEAN PLATELET VOLUME 9.7 fl (9.6-12.3); MONO # 0.5 10*3/uL (0.1-1.0); MONO % 6.1 % (3.0-9.0); NEUT # 5.8 10*3/uL (2.3-7.9); NEUT % 73.7 % (47.0-73.0); NUCLEATED RED BLOOD CELL 0.3 % (0.0-0.0); PLATELET COUNT AUTOMATED 206 10*3/uL (130-400); RED BLOOD COUNT 2.65 10*6/uL (4.50-5.90); RED CELL DISTRI WIDTH 16.1 % (0-14.5); WHITE BLOOD COUNT 7.9 10*3/uL (4.8-10.8)
[2019-07-15 11:27] LABS: BILIRUBIN NEGATIVE (NEGATIVE); BLOOD 3+ (NEGATIVE); CLARITY SL CLOUDY (CLEAR); COLOR YELLOW (YELLOW); GLUCOSE 1+ (NEGATIVE); KETONE NEGATIVE (NEGATIVE); LEUKO ESTERASE NEGATIVE (NEGATIVE); NITRITE NEGATIVE (NEGATIVE); PH 8.5 (5.0-9.0); SPECIFIC GRAVITY 1.015 (1.005-1.030); UROBILINOGEN 0.2 E.U./dl (0.2-1.0)
[2019-07-15 11:33] LABS: ACT PARTIAL THROMBO TIME 47.6 SECONDS (20.0-32.1); INTERNATIONAL NORM RATIO 3.8 (2.0-3.5)
[2019-07-15 11:38] LABS: ALBUMIN 2.8 gm/dl (3.1-4.5); CREATININE 2.25 mg/dL (0.70-1.30); POTASSIUM 3.5 mmol/L (3.5-5.1); TOTAL PROTEIN 6.7 gm/dL (6.4-8.2)
[2019-07-15 11:41] LABS: TROPONIN I 1.35 ng/ml (<0.045)
--- NOTE | 2019-07-15 11:41 | NUR ---
LAB CALLS WITH A CRITICAL TROPONIN OF 1.35. DOC MADE AWARE
[2019-07-15 11:42] LABS: BACTERIA TRACE; RBC TNTC rbc/hpf (0-2)
[2019-07-15 12:00] VITALS: BP 109/78
[2019-07-15 13:00] VITALS: BP 112/74
[2019-07-15 13:20] VITALS: BP 102/69
--- NOTE | 2019-07-15 13:20 | NUR ---
A 79, admitted to EDHOLD, under the services of AMBER Magana DO with a diagnosis of ENCEPHALOPATHY ACUTE ELEVATED TROPONIN. Chief complaint is CHANGE IN MENTAL STATUS. Patient arrived via bed from ER. Monitor applied. Initial assessment completed. Vital signs taken and recorded. AMBER MAGANA DO notified of admission to the unit. Orders received. See assessment for past medical history, medications and allergies. Patient and/or family oriented to unit. [facility] ICCU visitation policy reviewed. Clothing/patient valuable form completed. CAREY POLK R
--- NOTE | 2019-07-15 13:45 | NUR ---
DR. KONG OFFICE CALLED AWARE OF CONSULT.
--- NOTE | 2019-07-15 13:47 | NUR ---
CALLED DR. AMEZCUA OFFICE AWARE OF CONSULT.
[2019-07-15] MEDS ORDERED: XALATAN 0.005%2.5 ML INTRAOC (13:56)
[2019-07-15] MEDS ORDERED: MUPIROCIN15 GM T (13:58)
[2019-07-15] MEDS ORDERED: RISPERIDONE1 MG PO (13:59)
[2019-07-15] MEDS ORDERED: COUMADIN5 M2 PO (14:00)
[2019-07-15] MEDS ORDERED: PROMOD 946 ML946 ML PO (14:01)
[2019-07-15] MEDS ORDERED: Ipratropium Brom3 ML INH (14:09)
[2019-07-15] MEDS ORDERED: RENA-VITE1 TAB PO (14:11)
--- NOTE | 2019-07-15 15:00 | NUR ---
PIERRE ON THE FLOOR AWARE PT NEEDS WOUND ORDERS.
[2019-07-15 16:00] VITALS: BP 106/64
--- NOTE | 2019-07-15 16:30 | NUR ---
RESTING IN BED WITH AT HIS SIDE. RESP-EASY AND REGULAR. NO C/O AT THIS TIME. CALL LIGHT IN REACH. SEE SHIFT ASSESSMENT.
[2019-07-15 20:00] VITALS: BP 128/76
--- NOTE | 2019-07-15 21:30 | NUR ---
CALLED DR. ADDISON MADE AWARE PT HOME MEDICATIONS WASN'T ORDERED. NOT SURE IF CAUSE HE WAS UNRESPONSIVE.
--- NOTE | 2019-07-15 21:35 | NUR ---
PT RESTING IN BED WITH EYES CLOSED. AWAKENS EASILY. TOLERATED ROUTINE MED WITH NO PROBLEM. NO C/O AT THIS TIME. BED ALARM ON.
[2019-07-16] VITALS: BP 115/72
--- NOTE | 2019-07-16 02:16 | NUR ---
PT LYING IN BED RELAXING. RESPIRATIONS EASY, NONLABORED. NO COMPLAINTS AT THIS TIME. CALL LIGHT WITHIN REACH.
--- NOTE | 2019-07-16 03:04 | NUR ---
PT SCREAMING OUT TO "START THE ENGINE" THINKING HE IS ON AN AIRPLANE AND KEEPS CONTINUING TO SCREAM OUT. DR ADDISON MADE AWARE. SEE NEW ORDERS.
--- NOTE | 2019-07-16 03:17 | NUR ---
PT MEDICATED WITH ONE TIME PO ATIVAN ORDERED. WILL CHECK EFFECTIVENESS. CALL LIGHT WITHIN REACH.
--- NOTE | 2019-07-16 04:16 | NUR ---
PT LYING IN BED. PLEASANT AND CALM. ATIVAN SEEMS TO BE EFFECTIVE. CALL LIGHT WITHIN REACH.
--- NOTE | 2019-07-16 05:43 | NUR ---
ERICA ROMERO [id number] Please refer to the physician's history and physical for past medical history, comorbid conditions, and allergies. Diagnosis: ENCEPHALOPATHY ACUTE ELEVATED TROPONIN Rickey Score: 15,AT RISK WOUND DESCRIPTIONS: Wound Number: 1 Location of the wound: right great toe Thickness: Full Size: 0.7cm x 1.1cm x 0.1cm Tunneling: none Undermining: none Sinus Tract: none Presence of Exudate: serous Amount: Light Color: Yellow, red Odor: None Periwound Skin Appearance: Erythema Wound edges: approximated Pain (associated with wound): none at time of assessment How does patient state this happened? pt stated he fell but is unsure how this happened Wound Number: 2 Location of the wound: left 2nd toe Type of wound: DTI Size: 1.4cm x 1.0cm x 0.1cm Tunneling: none Undermining: none Sinus Tract: none Presence of Exudate: Serosanguineous Amount: Light Color: Red Odor: None Periwound Skin Appearance: Normal Wound edges: approximated Pain (associated with wound): none at time of assessment How does patient state this happened? pt unable to state how this happened Wound Number: 3 Location of the wound: left knee Thickness: Partial Size: 0.4cm x 1.8cm x 0.1cm Tunneling: none Undermining: none Sinus Tract: none Presence of Exudate: Serosanguineous Amount: Light Color: Red Odor: None Periwound Skin Appearance: Normal Wound edges: approximated Pain (associated with wound): none at time of assessment How does patient state this happened? pt unable to state how this happened Wound Number: 4 Location of the wound: right lower leg Thickness: Full Size: 0.5cm x 0.7cm x 0.1cm Tunneling: none Undermining: none Sinus Tract: none Presence of Exudate: serous Amount: Light Color: Yellow, red Odor: None Periwound Skin Appearance: scar tissue Wound edges: approximated Pain (associated with wound): none at time of assessment How does patient state this happened? pt stated he fell but is unsure how this happened Left lower extremity dry and flaky at time of assessment. No drainage at time of assessment. No drainage at time of assessment. Entire buttocks is red and blanchable at time of assessment. No drainage noted at time of assemssment. Surface the patient is resting on: Isoflex SKIN PREVENTION RECOMMENDATION: 1. Pressure redistribution support surface as appropriate 2. Elevate heels 3. Remove boots/TEDS every shift and reapply 4. Head of bed 30 degrees as tolerated 5. Assess nutrition and hydration 6. Manage moisture 7. Avoid the use of containment devices while in bed 8. Use absorptive products on surfaces limit layers of linens on bed 9. Turn and reposition every 1-2 hours in bed and every 1 hour in chair as tolerated 10. Weight shifts every 15 minutes while up in chair 11. Offloading with pillows or device to keep heels elevated off bed 12. Monitor skin at least every shift 13. Inspect under medical devices twice a day WOUND TREATMENT RECOMMENDATIONS: Heel raiser pro boots while in bed. Wheelchair cushion when oob. Consult podiatry since they followed with patient his previous admission Full thickness guidelines: Cleanse right great toe with nss and apply sureprep around the wound therahoney to wound bed and cover with bandaid daily and prn for soiling. DTI guidelines: Cleanse left 2nd toe with nss and apply sureprep to wound bed and cover with bandaid. Partial thickness guidelines: Cleanse left knee with nss and apply sureprep around the wound hydrogel to wound bed and cover with optifoam gentle every 2 days and prn for soiling. Cleanse entire buttocks and periarea with soap and water and apply hydraguard every shift and prn for soiling. Cleanse left and right lower extremity with soap and water and apply aquaphor daily.
[2019-07-16 06:31] LABS: BASO % 0.3 % (0.0-1.0); EOS # 0.1 10*3/uL (0.0-0.4); EOS % 0.7 % (1.0-4.0); HEMATOCRIT 25.9 % (42.0-52.0); HEMOGLOBIN 8.1 g/dl (14.0-18.0); LYMPH # 1.4 10*3/uL (1.3-4.4); LYMPH % 18.3 % (27.0-41.0); MEAN CELL VOLUME 100.4 fl (80.0-94.0); MEAN CORPUSCULAR HGB 31.4 pg (27.0-31.0); MEAN CORPUSCULAR HGB CONC 31.3 g/dl (33.0-37.0); MEAN PLATELET VOLUME 9.7 fl (9.6-12.3); MONO # 0.5 10*3/uL (0.1-1.0); MONO % 6.2 % (3.0-9.0); NEUT # 5.5 10*3/uL (2.3-7.9); PLATELET COUNT AUTOMATED 210 10*3/uL (130-400); RED BLOOD COUNT 2.58 10*6/uL (4.50-5.90); RED CELL DISTRI WIDTH 16.2 % (0-14.5); WHITE BLOOD COUNT 7.4 10*3/uL (4.8-10.8)
[2019-07-16 06:57] LABS: INTERNATIONAL NORM RATIO 2.7 (2.0-3.5)
[2019-07-16 07:01] LABS: ALBUMIN 2.8 gm/dl (3.1-4.5); CREATININE 3.76 mg/dL (0.70-1.30); POTASSIUM 4.2 mmol/L (3.5-5.1); TOTAL PROTEIN 6.7 gm/dL (6.4-8.2)
[2019-07-16 08:00] VITALS: BP 150/68
--- NOTE | 2019-07-16 08:06 | NUR ---
PHYSICAL THERAPY Nsg screen recived will follow. Thank You Annita Weldon PT
--- NOTE | 2019-07-16 08:44 | NUR ---
Spoke with Rhea LEO regarding wound care recommendations.
--- NOTE | 2019-07-16 09:00 | NUR ---
Junior Software Engineer in to talk to patient. Patient states lives at [facility] with other residents. There are no steps in the home. Physician: hour doctor Pharmacy: per facility Home health services: none Patient's level of ADLs: MINIMAL ASSIST Patient has working utilities: all working DME: walker Follow-up physician's appointment after d/c: will be followed up with the house doctor at [facility] Does patient want to access PORTAL?: no Discharge plan discussed with patient, he is a care home resident of [facility] and will return when medically stable, he receives dialysis Monday, Monday and Monday. VANESSA ALLISON
--- NOTE | 2019-07-16 09:39 | NUR ---
left message on resident phone for consult.
--- NOTE | 2019-07-16 10:20 | NUR ---
Occupational Therapy evaluation completed on 5 with full eval to follow. Precautions include fall risk; bed/chair alarm,dementia; impaired memory and orientation,high complexity level 77165 via chart review, testing and evaluation. Recommend OT per pOC and return LTC to detention upon dc. Thank you. Hina Mesa OTR/L
--- NOTE | 2019-07-16 11:34 | NUR ---
Patient is jail at [facility] and can return when medically stable. INTERNATIONAL TRADE COMPLIANCE MANAGER faxed updates to [facility]. -JAMES Giron
--- NOTE | 2019-07-16 11:34 | NUR ---
PHYSICAL THERAPY Physical therapy screen completed. Pt reports he is independent with ambulation without an AD and has been going to the bathroom himself without concerns. Reports no episodes of dizziness. Pt reports his will be available for assistance if needed at home. Lives in a one level home. No PT concerns/needs at this time. Thank you Meghann Rajput, PT, DPT
--- NOTE | 2019-07-16 11:42 | NUR ---
PHYSICAL THERAPY Pt sitting at bedside chair and eating lunch. Will attempt at later time. Thank you Meghann Rajput, PT,DPT
[2019-07-16 12:00] VITALS: BP 121/63
--- NOTE | 2019-07-16 14:27 | NUR ---
PHYSICAL THERAPY Physical therapy evaluation completed, 5E. Full details and evaluation to follow. Moderate complexity determined after evaluation/chart review, [address]. PT to work on strength, transfers, gait, safety, balance. Recommend returning to LTC at [facility] at discharge. Thank you Meghann Rajput, PT, DPT
--- NOTE | 2019-07-16 15:59 | NUR ---
PHYSICAL THERAPY Nursing screen and PT referral received. Thank you Meghann Rajput, PT, DPT
[2019-07-16 16:00] VITALS: BP 132/76
[2019-07-16 20:00] VITALS: BP 127/63
[2019-07-17] VITALS: BP 140/84; BP 157/98
--- NOTE | 2019-07-17 01:35 | NUR ---
24 HR chart check completed.
--- NOTE | 2019-07-17 02:57 | NUR ---
Patient lying in bed relaxing Respirations relaxed and easy. Siderails up . [place] on. No complaints at this time. Call light within reach. OSCAR MOORE
[2019-07-17 07:23] LABS: INTERNATIONAL NORM RATIO 2.3 (2.0-3.5)
[2019-07-17 08:00] VITALS: BP 154/80
[2019-07-17] MEDS ORDERED: COUMADIN2.5 M1 PO (09:12)
--- NOTE | 2019-07-17 09:15 | NUR ---
IV THERAPY NURSE notified the patient would need to be discharged to [facility] and then back to [facility]. IV THERAPY NURSE contacted [facility]. They are able to transport the patient to [facility] at 10:30am and then back to after his [facility] appt. IV THERAPY NURSE explained this to the floor work bill of materials clerk. IV THERAPY NURSE contact patients and explained this to her as well. -JAMES Giron
--- NOTE | 2019-07-17 09:52 | NUR ---
PATIENT BEING DISCHARGED FIRST GOING TO DIALYSIS CLINIC THEN BACK TO [facility] PER THERE TRANSPORT. HERE AND AWARE.
--- NOTE | 2019-07-17 10:40 | NUR ---
JACLYN CHAN HAS TAKEN PATIENT VIA .
--- NOTE | 2019-07-17 11:09 | NUR ---
PUBLIC RELATIONS COUNSELOR faxed discharge orders to [facility]. -JAMES Giron
--- NOTE | 2019-07-18 08:19 | NUR ---
PHYSICAL THERAPY CO-SIGN I approve of the Physical Therapy notes written above. Annita Weldon PT
--- NOTE | 2019-07-18 09:10 | NUR ---
OCCUPATIONAL THERAPY CO-SIGN I approve of the Occupational Therapy notes written above. RHEA GOMEZ OTR/[place]
== END 2019-07-17 10:40 | disposition other institution (70) | DRG 640 ==
LOC: ED 10:44 → 5E 11:57 → EDHOLD 11:57 → 5E 13:36
PROVIDERS: Emergency Medicine; Registered Nurse; ADMIT Internal Medicine
DX: E86.9 Volume depletion, unspecified (principal); N18.6 End stage renal disease; G93.41 Metabolic encephalopathy; I13.2 Hypertensive heart and chronic kidney disease with heart failure and with stage 5 chronic kidney disease, or end stage renal disease; E44.1 Mild protein-calorie malnutrition; I50.32 Chronic diastolic (congestive) heart failure; I42.9 Cardiomyopathy, unspecified; I48.91 Unspecified atrial fibrillation; E11.40 Type 2 diabetes mellitus with diabetic neuropathy, unspecified; I25.10 Atherosclerotic heart disease of native coronary artery without angina pectoris; E11.65 Type 2 diabetes mellitus with hyperglycemia; D53.9 Nutritional anemia, unspecified; I87.2 Venous insufficiency (chronic) (peripheral); E11.51 Type 2 diabetes mellitus with diabetic peripheral angiopathy without gangrene; R74.0 Nonspecific elevation of levels of transaminase and lactic acid dehydrogenase [LDH]; F03.90 Unspecified dementia, unspecified severity, without behavioral disturbance, psychotic disturbance, mood disturbance, and anxiety; R79.1 Abnormal coagulation profile; R79.89 Other specified abnormal findings of blood chemistry; E11.22 Type 2 diabetes mellitus with diabetic chronic kidney disease; E78.2 Mixed hyperlipidemia; Z79.4 Long term (current) use of insulin; Z99.2 Dependence on renal dialysis; Z79.01 Long term (current) use of anticoagulants; Z87.01 Personal history of pneumonia (recurrent); Z98.49 Cataract extraction status, unspecified eye; Z84.1 Family history of disorders of kidney and ureter; Z80.0 Family history of malignant neoplasm of digestive organs; Z80.7 Family history of other malignant neoplasms of lymphoid, hematopoietic and related tissues; Z79.899 Other long term (current) drug therapy; Z68.22 Body mass index [BMI] 22.0-22.9, adult

== ENCOUNTER 2019-07-28 05:07 | Inpatient (IN) | payer MEDICARE ==
[~2019-07-28] VITALS: Ht 180.3 cm; Wt 83.1 kg
[2019-07-28] VITALS (54 sets, daily range): BP systolic 0–177; BP diastolic 0–83
[~2019-07-28 05:07] MED LIST changes: +COUMADIN2.5 M1 PO; +COUMADIN5 M2 PO; +Ipratropium Brom3 ML INH; +MUPIROCIN15 GM T; +PROMOD 946 ML946 ML PO; +RENA-VITE1 TAB PO; +RISPERIDONE1 MG PO; +XALATAN 0.005%2.5 ML INTRAOC
[2019-07-28 05:46] LABS: HEMATOCRIT 24.2 % (42.0-52.0); HEMOGLOBIN 7.9 g/dl (14.0-18.0); MEAN CELL VOLUME 100.8 fl (80.0-94.0); MEAN CORPUSCULAR HGB 32.9 pg (27.0-31.0); MEAN CORPUSCULAR HGB CONC 32.6 g/dl (33.0-37.0); MEAN PLATELET VOLUME 12.2 fl (9.6-12.3); PLATELET COUNT AUTOMATED 113 10*3/uL (130-400); RED CELL DISTRI WIDTH 17.4 % (0-14.5); WHITE BLOOD COUNT 8.9 10*3/uL (4.8-10.8)
[2019-07-28 05:57] LABS: BILIRUBIN NEGATIVE (NEGATIVE); BLOOD 2+ (NEGATIVE); CLARITY SL CLOUDY (CLEAR); COLOR YELLOW (YELLOW); GLUCOSE 2+ (NEGATIVE); KETONE NEGATIVE (NEGATIVE); LEUKO ESTERASE NEGATIVE (NEGATIVE); NITRITE NEGATIVE (NEGATIVE); PH 8.5 (5.0-9.0); SPECIFIC GRAVITY 1.015 (1.005-1.030); UROBILINOGEN 0.2 E.U./dl (0.2-1.0)
[2019-07-28 06:02] LABS: ALBUMIN 2.5 gm/dl (3.1-4.5); CREATININE 4.51 mg/dL (0.70-1.30); TOTAL PROTEIN 6.4 gm/dL (6.4-8.2)
[2019-07-28 06:07] LABS: PLATELET SUFFICIENCY LOW (NORMAL); TOTAL CELLS COUNTED 100 #CELLS; VACUOLATION OF NEUTROPHILS SLIGHT
[2019-07-28 06:08] LABS: POLYCHROMASIA SLIGHT; TROPONIN I 1.25 ng/ml (<0.045)
[2019-07-28 06:11] LABS: ACT PARTIAL THROMBO TIME 45.6 SECONDS (20.0-32.1); INTERNATIONAL NORM RATIO 3.5 (2.0-3.5)
[2019-07-28 06:21] LABS: MUCOUS 1+
--- NOTE | 2019-07-28 06:30 | NUR ---
NOREPINEPHRINE TITRATED TO 6MCG/MIN
--- NOTE | 2019-07-28 08:31 | NUR ---
CRITICAL LAB: Gera 6.9. DR DURAN NOTIFIED
--- NOTE | 2019-07-28 08:35 | NUR ---
BUTTOCKS ARE RED BUT BLANCHABLE. ABRASIONS ARE NOTED TO BOTH BUTTOCKS.
--- NOTE | 2019-07-28 09:15 | NUR ---
A 79, admitted to ICCU, under the services of AMBER Magana DO with a diagnosis of elevated trop, CKD. Chief complaint is sent from jail . Patient arrived via stretcher from ER. Monitor applied. Initial assessment completed. Vital signs taken and recorded. AMBER MAGANA DO notified of admission to the unit. Orders received. See assessment for past medical history, medications and allergies. Patient and/or family oriented to unit. [facility] ICCU visitation policy reviewed. at bedside, pt on levaphed at 4 mcg Clothing/patient valuable form completed. DAVID REMY
[2019-07-28] MEDS ORDERED: COUMADIN5 M2 PO (10:14)
[2019-07-28] MEDS ORDERED: Lopressor25 MG PO (10:23)
--- NOTE | 2019-07-28 11:11 | NUR ---
MESSAGE LEFT FOR PODIATRY & NEPHROLOGY ABOUT CONSULT
--- NOTE | 2019-07-28 11:19 | NUR ---
CRITICAL TROP RECEIVED FROM LAB - ON HOLD FOR CARDIOLOGY CONSULT TO INFORM THEM OF RESULTS
--- NOTE | 2019-07-28 11:22 | NUR ---
PT RESTING QUIETLY ON LEFT SIDE WITH PRESENT. INTERMITTENT C/O PAIN (DEMETRA BONE UNDER TOOTH) THEN BACK. REMAIN ON HOLD FOR CARDIOLOGY CONSULT & CRITICAL RESULTS
--- NOTE | 2019-07-28 11:32 | NUR ---
DR AVENDANO AWARE OF LABS - AWAITING RETUIRN CALL FROM CARDIOLOGY
--- NOTE | 2019-07-28 13:00 | NUR ---
DR VILLAFANA CALLED WITH +BC RESULT - DR CHA AWARE
--- NOTE | 2019-07-28 13:21 | NUR ---
DR CHA CALLED WITH TROPONIN RESULT. NO NEW ORDERS PATIENT IS NOT A SURGICAL CANDIDATE & MEDICAL MANAGEMENT HAS ALREADY BEEN DISCUSSED WITH
--- NOTE | 2019-07-28 13:31 | NUR ---
ID ANSWERING SERVICE CALLED WITH CONSULT
--- NOTE | 2019-07-28 13:32 | NUR ---
PALLIATIVE MESSAGE LEFT
--- NOTE | 2019-07-28 14:00 | NUR ---
MORPHINE GIVEN - DR VILLAFANA CALLED ABOUT TROPONIN & MADE AWARE OF WHAT CARDIOLOGY SAID.
--- NOTE | 2019-07-28 15:08 | NUR ---
SLEEPING SINCE MEDICATED WITH MORPHINE
--- NOTE | 2019-07-28 15:14 | NUR ---
DR VILLAFANA CALLED WITH CRITICAL LA RESULT. NO FURTHER ORDERS - [id number] THAT NURSE HAD A VERY IN-DEPTH CONVERSATION WITH THE SON VIA PHONE PER 'S REQUEST & REMAINED TO HEAR CONVERSATION. CONDITION POOR.
--- NOTE | 2019-07-28 15:35 | NUR ---
BLOOD PRESSURE DROPPED, EYES ROLLED BACK AFTER LARGE EMESIS OF COFFEE GROUND & UNDIGESTED FOOD. PT UNRESPONSIVE - RAPID RESPONSE CALLED AND ALL STAFFF ARRIVED ALONG WITH DR SWANN & DR VILLAFANA. LEVOPHED DRIP INCREASED TO 8mcg/min VIA ASYMPTOMATIC SITE.
--- NOTE | 2019-07-28 16:00 | NUR ---
PATIENT HAD RETURN OF PULSE AND AFTER LONG DISCUSSION WITH IN THE LOBBY & THE SON VIA PHONE WITH DR BRYANT PRESENT THEY WANT THE PATIENT INTUBATED BUT ARE REFUSING TRANSFER THEY SAID THEY UNDERSTAND THAT THERE IS NOT MUCH THAT CAN BE DONE NOW. SON IS TO BE HERE AROUND 11pm TONIGHT. PATIENT IS VERY UNSTABLE & DR BRYANT WENT TO SPEAK WITH AGAIN ABOUT [facility] LINE PLACEMENT.
--- NOTE | 2019-07-28 16:31 | NUR ---
CODE BLUE CLEARED AFTER NO PULSES AND NO HEART WALL MOTION CHECKED BY ER DR DURAN. DR SWANN CLEARED CODE. WAS PRESENT AT BEDSIDE DURING LAST FEW MINUTES. COMPUTATIONAL LINGUIST HERE. THEATRICAL TROUPER CALLED AND AWAITING RETURN CALL
--- NOTE | 2019-07-28 16:55 | NUR ---
FAMILY IN THE ROOM WITH THE PATIENT - DOESN'T WANT THE PATIENT TAKEN ANYWHERE UNTIL THE SON GETS HERE.
--- NOTE | 2019-07-28 17:54 | NUR ---
FAMILY AT BEDSIDE AFTER PATIENT CLEANED UP AND ALL LINES REMOVED. OK TO RELEASED OBTAINED FROM ENVIRONMENTAL ANALYST & ONE CALL. DR ARANGO AWARE OF PT EXPIRING.
--- NOTE | 2019-07-28 18:03 | NUR ---
MESSAGE LEFT WITH CARDIOLOGY ANSWERING SERVICE ABOUT
--- NOTE | 2019-07-28 18:04 | NUR ---
[facility] NOTIFIED OF
--- NOTE | 2019-07-28 18:25 | NUR ---
PADDED BOX SEWER Lucy WOODS NOTIFIED THAT THE IS NOT PLANNING ON LEAVING THE ROOM UNTIL THE SON ARRIVES THIS EVENING.
--- NOTE | 2019-07-29 01:13 | NUR ---
PT TO [facility] DIRECTED BY FAMILY MEMBERS.
== END 2019-07-29 01:47 | disposition expired | DRG 208 ==
LOC: ED 05:07 → EDHOLD 07:52 → ICCU 07:57
PROVIDERS: Emergency Medicine Emergency Medical Services; ADMIT Internal Medicine
DX: J96.01 Acute respiratory failure with hypoxia (principal); I21.A1 Myocardial infarction type 2; G93.41 Metabolic encephalopathy; N18.6 End stage renal disease; R65.11 Systemic inflammatory response syndrome (SIRS) of non-infectious origin with acute organ dysfunction; E43 Unspecified severe protein-calorie malnutrition; F03.91 Unspecified dementia, unspecified severity, with behavioral disturbance; I13.2 Hypertensive heart and chronic kidney disease with heart failure and with stage 5 chronic kidney disease, or end stage renal disease; E87.2 Acidosis; D68.9 Coagulation defect, unspecified; R78.81 Bacteremia; J98.11 Atelectasis; R57.0 Cardiogenic shock; R57.8 Other shock; I50.9 Heart failure, unspecified; E11.51 Type 2 diabetes mellitus with diabetic peripheral angiopathy without gangrene; R31.29 Other microscopic hematuria; D69.6 Thrombocytopenia, unspecified; I27.20 Pulmonary hypertension, unspecified; T68.XXXA Hypothermia, initial encounter; E83.52 Hypercalcemia; E87.8 Other disorders of electrolyte and fluid balance, not elsewhere classified; E11.40 Type 2 diabetes mellitus with diabetic neuropathy, unspecified; E11.621 Type 2 diabetes mellitus with foot ulcer; L97.529 Non-pressure chronic ulcer of other part of left foot with unspecified severity; L97.519 Non-pressure chronic ulcer of other part of right foot with unspecified severity; E11.65 Type 2 diabetes mellitus with hyperglycemia; E11.22 Type 2 diabetes mellitus with diabetic chronic kidney disease; I48.0 Paroxysmal atrial fibrillation; I35.0 Nonrheumatic aortic (valve) stenosis; D53.9 Nutritional anemia, unspecified; E03.9 Hypothyroidism, unspecified; R74.0 Nonspecific elevation of levels of transaminase and lactic acid dehydrogenase [LDH]; M54.5 Low back pain; R79.82 Elevated C-reactive protein (CRP); R29.6 Repeated falls; E78.5 Hyperlipidemia, unspecified; G47.10 Hypersomnia, unspecified; Z51.5 Encounter for palliative care; B35.1 Tinea unguium; S80.812A Abrasion, left lower leg, initial encounter; S80.811A Abrasion, right lower leg, initial encounter; X58.XXXA Exposure to other specified factors, initial encounter; Y93.89 Activity, other specified; Y92.89 Other specified places as the place of occurrence of the external cause; Y99.8 Other external cause status; Z79.4 Long term (current) use of insulin; Z68.25 Body mass index [BMI] 25.0-25.9, adult; Z98.49 Cataract extraction status, unspecified eye; Z99.2 Dependence on renal dialysis; Z80.0 Family history of malignant neoplasm of digestive organs; Z80.7 Family history of other malignant neoplasms of lymphoid, hematopoietic and related tissues; Z79.899 Other long term (current) drug therapy; Z84.1 Family history of disorders of kidney and ureter